=== PATIENT | male | born 1945 | race Caucasian/White ===

== ENCOUNTER 2020-12-22 13:45 | Outpatient (CLI) | payer MEDICARE, SELFPAY | END 2020-12-22 13:46 | disposition home or self-care (01) | LOC: ANHCOVIDVC 13:45 | PROVIDERS: PCP Internal Medicine | DX: Z23 Encounter for immunization (principal) | CPT/HCPCS: 0001A; 91300 ==

== ENCOUNTER 2021-01-12 13:37 | Outpatient (CLI) | payer MEDICARE, SELFPAY | END 2021-01-12 13:38 | disposition home or self-care (01) | LOC: ANHCOVIDVC 13:37 | PROVIDERS: PCP Internal Medicine | DX: Z23 Encounter for immunization (principal) | CPT/HCPCS: 0002A; 91300 ==

== ENCOUNTER 2021-02-26 14:30 | Outpatient (CLI) | payer MEDICARE, SELFPAY ==
--- NOTE | 2021-02-26 15:16 | ECHO_ITS ---
Patient Info Name: Mohinder Orellana Age: 75 years : 1945 Gender: Male Ht: 69 in Wt: 205 lbs BSA: 2.15 m2 HR: 72 bpm BP: 131 / 79 mmHg Heart Rhythm: Sinus Rhythm Technical Quality: Good Exam Date: 02/26/2021 3:29 PM Exam Location: [facility] Patient Status: Outpatient Admit Date: 02/26/2021 Staff Ordering Physician: Brian Baron MD Jig Builder: Sarita Alvarez RDCS Attending Provider: Brian Baron MD Referring Physician: Tod BENZ; Exam Type: CA echo doppler color flow Study Info Indications - BRADYCARDIA Complete two-dimensional, color flow and Doppler transthoracic echocardiogram is performed. Summary 1. Complete two-dimensional, color flow and Doppler transthoracic echocardiogram is performed. 2. Normal left ventricular size and thickness with left ventricular systolic function at the lower limit of normal. EF 50-55% visually, 44% measured. No focal wall motion abnormalities. Grade 2 diastolic dysfunction is present. 3. Left atrial chamber dimension is severely enlarged. 4. There is mild mitral valve regurgitation. 5. There is mild tricuspid valve regurgitation. 6. There is mild pulmonic regurgitation. 7. Moderate pulmonary hypertension, estimated pulmonary arterial systolic pressure is 47 mmHg. 8. Normal sinus rhythm with very frequent PVCs. Left Ventricle Left ventricular chamber dimension is normal. Left ventricular systolic function is normal, estimated at 50-55%. There is no increased left ventricular wall thickness. Left ventricular septal wall motion is normal. The left ventricular diastolic function is grade II diastolic dysfunction. Right Ventricle Right ventricular chamber dimension is normal. Right ventricular systolic function is normal. Left Atria Left atrial chamber dimension is severely enlarged. Right Atria Right atrial chamber dimension is normal. Aortic Valve The aortic valve is trileaflet. There is moderate aortic valve sclerosis. There is no aortic valve stenosis. There is no aortic valve regurgitation. Pulmonic Valve The pulmonic valve is normal. There is no pulmonic valve stenosis. There is mild pulmonic regurgitation. Mitral Valve The mitral valve has thickened leaflets. There is no mitral valve stenosis. There is mild mitral valve regurgitation. Tricuspid Valve The tricuspid valve leaflets are normal. There is no significant tricuspid valve stenosis. There is mild tricuspid valve regurgitation. Moderate pulmonary hypertension, estimated pulmonary arterial systolic pressure is 47 mmHg. Pericardium/Pleural The pericardium appears normal. There is no pericardial effusion. Inferior Vena Cava Normal inferior vena cava with >50% collapse upon inspiration consistent with Empty right atrial pressure, 10 mmHg. Aorta The aortic root size at the sinus of Valsalva is normal. The prox ascending aorta size is normal. There is mild aortic atherosclerosis. Left Ventricular Outflow Tract Name Value Normal LVOT 2D LVOT Diameter 2.1 cm LVOT Doppler LVOT Peak Gradient 4 mmHg LVOT
--- NOTE | 2021-03-05 16:27 | WPDHOLTEREM ---
Holter/Event Monitor Holter/Event Monitor Date of procedure: 02/26/21 Holter/Event Procedure: 48 Hr Holter Monitor Indications: Bradycardia, history of heart disease Conclusion: 1. 48 hour holter monitor on 02/26/21. 2. Predominant rhythm is sinus rhythm. HR range 50-107 bpm; average HR 70 bpm. 3. There ar 8,216 premature supraventricular complexes, 344 supraventricular couplet, 25 supraventricular bigeminy and 481 supraventricular trigeminy. There are 44 episodes of atrial tachycardia, fastest at 156 bpm and longest lasting 6 beats. 4. There are 14,277 premature ventricular complexes, 563 ventricular couplets, 100 ventricular triplets, 5,286 ventricular bigeminy and 10,382 ventricular trigeminy. There are 11 episodes of ventricular tachycardia, fastest at 141 bpm and longest lasting 5 beats. 5. Right bundle branch block. No sinoatrial or atrioventricular blocks. No significant pauses greater than 2 seconds. 6. Patient reports symptoms of shortness of breath which demonstrate sinus rhythm, HR range 71-87 bpm with PAC's and PVC's.
== END 2021-02-26 14:31 | disposition home or self-care (01) ==
PROVIDERS: PCP Internal Medicine; Visit Provider Internal Medicine
DX: I45.10 Unspecified right bundle-branch block (principal); Z86.79 Personal history of other diseases of the circulatory system; I10 Essential (primary) hypertension; I34.0 Nonrheumatic mitral (valve) insufficiency; I36.1 Nonrheumatic tricuspid (valve) insufficiency; I37.1 Nonrheumatic pulmonary valve insufficiency; I27.20 Pulmonary hypertension, unspecified
CPT/HCPCS: 93225; 93226; 93306

== ENCOUNTER 2021-04-03 13:44 | Outpatient (CLI) | payer MEDICARE, SELFPAY ==
--- NOTE | 2021-04-03 17:14 | WPDPFTINT ---
PFT Procedure Performed PFT Procedure Performed Spirometry with Pre/Post Bronchodilator Plethysmography (Lung Vol) Diffusing Cap (DLCO) Flow Vol Loop PFT Interpretation This is a pulmonary function test with pre and post-bronchodilator spirometry, plethysmography and diffusing capacity. The test was performed and results interpreted in accordance with the 2019 and 2005 ATS/ERS Task Force guidelines respectively using the Global Lung Function Initiative-2012 reference equations. Patient demonstrated good effort and cooperation. Reproducibility criteria were met. The quality of the pre bronchodilator spirometry maneuver was Grade A and post bronchodilator spirometry maneuver was Grade B. Findings: Spirometry: The contour the inspiratory and expiratory flow tracing are normal. The pre bronchodilator FVC is 3.71 L, 95% predicted. The pre bronchodilator FEV1 is 2.66 L, 91% predicted. The FEV1: FVC ratio 72%. The post bronchodilator FVC is 3.75 L, representing 1% increase. The post bronchodilator FEV1 is 2.82 L, representing a 6% increase. Plethysmography: The total lung capacity is 6.05 L, 89% predicted. Functional residual capacity is 3.46 L, 95% predicted. The residual volume is 1.92 L, 77% predicted. Diffusing capacity: The absolute diffusion capacity is 17.8, 72% predicted. The diffusing capacity corrected for alveolar volume is 3.37, 88% predicted. Impression: The spirometry is normal without evidence of an obstructive abnormality. There is no significant improvement after inhaling a single dose of albuterol. The lung volumes are normal. The diffusing capacity is normal. There are no prior studies for comparison
== END 2021-04-03 13:45 | disposition home or self-care (01) ==
PROVIDERS: PCP Internal Medicine; Visit Provider Internal Medicine
DX: R06.00 Dyspnea, unspecified (principal); R06.02 Shortness of breath; I27.20 Pulmonary hypertension, unspecified
CPT/HCPCS: 94060; 94726; 94729

== ENCOUNTER 2021-05-06 01:40 | Day surgery (SDC) | payer MEDICARE, SELFPAY ==
[2021-05-06] VITALS (9 sets, daily range): BP systolic 109–119; BP diastolic 67–75; PULSE 59–73; RESP 13–16; TEMP 36.1–36.2; O2SAT 92–95; BMI 30.2
[2021-05-06 07:49] LABS: Basophils Absolute Auto 0.1 K/mm3 (0.0-0.1); Basophils Percent Auto 1.1 % (0.2-1.2); Eosinophils Absolute Auto 0.3 K/mm3 (0-0.3); Eosinophils Percent Auto 6.5 % (0-4.4); Hematocrit 45.6 % (42.0-52.0); Hemoglobin 15.6 g/dL (14.0-18.0); Immature Granulocyte Absolute 0.02 K/mm3 (0.00-0.031); Immature Granulocyte Percent A 0.4 % (0-0.5); Immature Platelet Fraction Pct 5.4 % (0.9-11.2); Lymphocytes Absolute Auto 1.27 K/mm3 (0.9-3.2); Lymphocytes Percent Auto 27.5 % (18.3-44.2); Mean Corpuscular HGB Conc 34.2 g/dl (32-36); Mean Corpuscular Hemoglobin 31.9 pg (26-34); Mean Corpuscular Volume 93.3 fl (80-100); Mean Platelet Volume 10.9 fl (7.4-10.4); Monocytes Absolute Auto 0.6 K/mm3 (0.1-0.6); Monocytes Percent Auto 12.4 % (2.6-8.5); Neutrophils Absolute Auto 2.4 K/mm3 (1.3-6.7); Neutrophils Percent Auto 52.1 % (45.5-73.1); Platelet Count Result 150 k/mm3 (150-375); Red Blood Count 4.89 M/mm3 (4.6-6.20); Red Cell Distribution Width 13.2 % (11.5-14.5); White Blood Count 4.6 K/mm3 (4.5-10.0)
[2021-05-06 07:58] LABS: Anion Gap 7 mmol/L (8-16); Blood Urea Nitrogen 24 mg/dL (9-20); Calcium 9.3 mg/dL (8.4-10.2); Carbon Dioxide 26 mmol/L (22-30); Chloride 107 mmol/L (98-107); Estimated Glomerular Filt Rate > 60; Glucose 128 mg/dL (65-110); Potassium 3.9 mmol/L (3.4-5.0); Sodium 140 mmol/L (137-145)
[2021-05-06 08:00] LABS: INR 0.9; Prothrombin Time 12.1 Seconds (11.1-14.7)
--- NOTE | 2021-05-06 09:05 | WPDMODSED ---
Moderate Sedation Note-Pt Data Patient Data Diagnosis: Mild left ventricular systolic dysfunction and ventricular arrhythmias Present Complaint: no complaints Procedure to be performed/Plan: this is a 75-year-old man without prior history of coronary disease who was been found on noninvasive evaluation to have a decline in his LV systolic function and evidence of asymptomatic nonsustained ventricular tachycardia Allergies Allergy/AdvReac Type Severity Reaction Status Date / Time indomethacin Allergy Intermediate GASTRIC Verified 05/06/21 07:41 UPSET clarithromycin Allergy Mild Unknown Verified 05/06/21 07:41 Home Medications Medication Instructions Recorded Confirmed Type krill oil 500 mg capsule 500 mg PO DAILY 08/28/19 05/06/21 History enalapril maleate 20 mg tablet 20 mg PO BID #180 tablet 08/19/20 05/06/21 Rx celecoxib 200 mg capsule 200 mg PO DAILY #90 cap 10/28/20 05/06/21 Rx alprazolam 0.5 mg tablet 0.5 mg PO BID #180 tablet 04/14/21 05/06/21 Rx allopurinol 300 mg PO DAILY 05/06/21 05/06/21 History felodipine 10 mg PO BID 05/06/21 05/06/21 History lansoprazole 20 mg PO DAILY 05/06/21 05/06/21 History Current Medications: Active Medications Sodium Chloride (Normal Saline Iv) 500 mls @ 100 mls/hr IV CONT .Q5H BART Sedation/Anesthesia: No previous sedation/anesthesia problems (including family history). [facility] Past Medical History Medical History Abnormal finding of blood chemistry Benign essential hypertension BMI 29.0-29.9,adult BMI 30.0-30.9,adult BMI 31.0-31.9,adult Bradycardia Cataract, right eye Cyst ADAMS (dyspnea on exertion) Elevated glucose Encounter for Medicare annual wellness exam Encounter for routine adult health examination with abnormal findings Encounter for routine adult health examination without abnormal findings Encounter for special screening examination for neoplasm of prostate GERD (gastroesophageal reflux disease) Gout Grade II diastolic dysfunction Hearing loss Hx of valvular heart disease Hyperlipidemia Hypersomnolence On halfway drug therapy Pulmonary hypertension RBBB (right bundle branch block) SOB (shortness of breath) Tick bite Vitamin D deficiency Surgical History Surgical History S/P cataract surgery Family History Family History Father Family history of heart disease in male family member before age 55 Other Malignant neoplasm of prostate Social History Social History Smoking status: Former smoker Second hand tobacco smoke exposure: Yes Smoking end date: 12/12/83 Additional smoking assessment comments: Discussed pack years. Alcohol intake: current Substance use: never Substance use type: does not use Gender identity (if verbalized by the patient): Male Mod Sed Physical Exam Physical Exam Pre Procedural Exam: Normal: Appearance, Neck, Throat, Airway, Lungs, Heart Size, Heart Rate, Heart Rhythm, Neuro Exam and Extremities Hours since solid foods: 12 Hours since liquid intake: 12 Mallampati Classification: class II Internal Medicine - PN: Obj Da Vital Signs Vital Signs: Vital Signs - 24 hr 05/06/21 07:45 Temperature 36.1 C L Pulse Rate 73 Respiratory Rate 13 Blood Pressure 114/72 Pulse Oximetry 95 Meds/Results Medications: Active Medications Generic Name Dose Route Start Last Admin Trade Name Freq PRN Reason Stop Dose Admin Sodium Chloride 500 mls @ 100 mls/hr 05/06/21 07:30 Normal Saline Iv IV CONT .Q5H BART Labs CBC & Chem 7: 05/06/21 07:31 05/06/21 07:31 Labs: Laboratory Results - last 24 hr 05/06/21 05/06/21 05/06/21 07:31 07:31 07:31 WBC 4.6 RBC 4.89 Hgb 15.6 Hct 45.6 MCV 93.3 MCH 31.9 MCHC 34.2 RDW 13.2 Plt Count 150
--- NOTE | 2021-05-06 09:42 | WPDCARDPROC ---
Cardiac Cath Procedure Note Date of procedure:: 05/06/21 Performing physician:: Channing Tobar MD Indication:: left ventricular systolic dysfunction and asymptomatic ventricular arrhythmias Brief clinical history:: this is a 75-year-old man with no prior history of significant coronary disease. As an outpatient he was found on evaluation to have a decline in his LV systolic function by echo and asymptomatic nonsustained ventricular arrhythmias noted on Holter monitoring. Procedure Procedure performed:: Coronary angiography left ventriculography Angio-Seal to right femoral artery Sedation/Medication given:: fentanyl 50 mg Versed 2 mg case start time 9:15 a.m. case end time 9:37 a.m. sedation provided by Shea Rose RN, trained observer Access site:: right femoral artery Estimated blood loss:: minimal Procedure note:: patient was brought to the cardiac catheterization lab in the postabsorptive state the right femoral triangle was prepared and draped in the usual fashion. Anesthesia was provided with 1% lidocaine infiltrated locally. Using the modified Seldinger technique a 5 American sheath was placed into the femoral artery and left heart catheterization was carried out. I used a 5 American angled pigtail catheter to inject the left ventriculogram in the STARK projection and to document left-sided central hemodynamics. After this I used a 5 American FL4 catheter to engage and inject the left coronary artery and then a 5 American JR4 catheter to engage and inject the right coronary artery. 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 Findings:: Hemodynamics: Central aortic pressure is 104/70 left ventricle 104/0 end-diastolic pressure there is no systolic gradient on pullback across the aortic valve. Left ventricle: The LV is mildly enlarged there is moderate global systolic hypocontractility the ejection fraction is visually estimated at 35%. The left main coronary artery is large in caliber and widely patent the LAD is a moderate caliber artery that extends down to the apex the LAD has minimal luminal irregularities but no flow-limiting or significant disease is identified. The circumflex is a moderate to large caliber vessel giving rise to marginal branches the trunk of the circumflex has mild luminal irregularities in the midportion but again no significant disease is seen. The right coronary artery is large in caliber and dominant to the posterior circulation. Majority of the RCA is angiographically normal. There is calcification at the ostium of the right coronary artery of the wall of the aorta. There is no dampening of pressure on engaging the vessel. Angiographically there is in the range of 50-60% ostial stenosis. Again this does not appear to be limiting flow and this patient is not describing ischemic symptomatology. Conclusion:: 1. Angiographically modest coronary artery disease with minimal plaquing in the left coronary artery and some ostial calcific disease in the RCA as detailed above. None of this appears to be flow limiting. 2. Moderate left ventricular systolic dysfunction. Channing Tobar MD FACC
--- NOTE | 2021-05-06 13:50 | SUR.PHASEII ---
REVIEWED DISCHARGE INSTRUCTIONS W/ PT AND . QUESTIONS ANSWERED. VOICED UNDERSTANDING OF ALL INSTRUCTIONS. DISCHARGED HOME, OUT VIA WC TO 'S WAITING CAR, WITH ALL PERSONAL BELONGINGS AND DISCHARGE PACKET. VOICES NO C/O. NO DISTRESS NOTED. R. GROIN SITE WITHOUT CHANGE. R. PEDAL PULSE PALP STRONG.
== END 2021-05-06 13:50 | disposition home or self-care (01) ==
PROVIDERS: PCP Internal Medicine; Visit Provider Specialist
PROC: 4A023N7 Measurement of Cardiac Sampling and Pressure, Left Heart, Percutaneous Approach (ICD-10-PCS; CPT 93452; principal; 2021-05-06 08:30)
DX: I51.89 Other ill-defined heart diseases (principal); I49.8 Other specified cardiac arrhythmias; I25.10 Atherosclerotic heart disease of native coronary artery without angina pectoris; I48.0 Paroxysmal atrial fibrillation; I34.0 Nonrheumatic mitral (valve) insufficiency; I42.9 Cardiomyopathy, unspecified; I27.20 Pulmonary hypertension, unspecified; I45.10 Unspecified right bundle-branch block; I10 Essential (primary) hypertension; M10.9 Gout, unspecified; Z87.891 Personal history of nicotine dependence
CPT/HCPCS: 36415; 80048; 85025; 85055; 85610; 93458; C1760; C1887; C1894; G0269; J1644; J2250; J3010; J7040

== ENCOUNTER → 2021-07-17 08:03 | Outpatient (CLI) | payer MEDICARE, SELFPAY ==
[2021-07-17 17:24] LABS: SARS-CoV-2 RNA PCR Positive
== END ==
PROVIDERS: PCP Internal Medicine; Visit Provider Internal Medicine
DX: U07.1 COVID-19 (principal); R05.8 Other specified cough
CPT/HCPCS: C9803; U0003; U0005

== ENCOUNTER 2022-07-19 16:07 | Outpatient (CLI) | payer MEDICARE, SELFPAY ==
[2022-07-19 17:09] LABS: Appearance Urine Clear (Clear); Bilirubin Urine Negative (Negative); Blood Urine Negative (Negative); Color Urine Yellow (Yellow); Glucose Urine UA Negative (Negative); Ketones Urine Negative (Negative); Leukocyte Esterase Ur Negative LEU/UL (Negative); Nitrate Urine Negative (Negative); Protein Urine 1+ mg/dL (Negative); Specific Grav Ur 1.025 (1.001-1.035)
[2022-07-19 17:13] LABS: Mucus Urine Rare /lpf; RBC Urine 0-2 /hpf (0-2); Squamous Epithelial Cell Urine Rare /hpf (Few); WBC Urine 0-3 /hpf
[2022-07-19 17:14] LABS: Add Urine Microscopic? YES
[2022-07-19 17:16] LABS: Anion Gap 13 mmol/L (8-16); Blood Urea Nitrogen 24 mg/dL (9-20); Calcium 8.9 mg/dL (8.4-10.2); Carbon Dioxide 28 mmol/L (22-30); Chloride 103 mmol/L (98-107); Estimated Glomerular Filt Rate > 60; Glucose 107 mg/dL (65-110); Potassium 3.9 mmol/L (3.4-5.0); Sodium 144 mmol/L (137-145)
== END 2022-07-19 16:08 | disposition home or self-care (01) ==
LOC: ANHLAB 16:10
PROVIDERS: PCP Internal Medicine; Visit Provider Internal Medicine
DX: I10 Essential (primary) hypertension (principal); R00.2 Palpitations; Z79.899 Other long term (current) drug therapy
CPT/HCPCS: 36415; 80048; 81001; 83735

== ENCOUNTER 2022-09-02 10:54 | Outpatient (CLI) | payer MEDICARE, SELFPAY ==
--- NOTE | 2022-09-08 13:38 | WPDHOLTEREM ---
Holter/Event Monitor Holter/Event Monitor Date of procedure: 09/02/22 Holter/Event Procedure: 48 Hr Holter Monitor Diagnosis: Bradycardia Indications: Bradycardia Image/Tracing Quality: Adequate. Analysis time is 47 hours and 59 minutes. Findin. Predominantly sinus rhythm. Average heart rate is 68BPM. The minimum heart rate was sinus bradycardia at 44BPM, occurring at 16:47 on day 1. The maximum heart rate was 90BPM. 2. Supraventricular ectopy burden is 1.2%. Supraventricular ectopy consisted of runs, atrial couplets, single PACs. The longest supraventricular run consisted of 5 beats with a maximum heart rate of 114BPM, which was also the fastest run. 3. Ventricular ectopy burden is 18%. Ventricular ectopy consisted of runs, triplets, couplets, single PVCs, interpolated PVCs, R on T, bigeminy, trigeminy. The longest ventricular run consisted of 10 beats, with a maximum heart rate of 73BPM. The fastest ventricular run consisted of 4 beats, with a maximum heart rate of 130BPM. 4. There is no evidence of atrial fibrillation. 5. There was 1 patient reported event of burning sensation in toes and fingers when sleeping. This correlated to sinus rhythm with PVCs. Conclusion: 1. Predominantly sinus rhythm. Average heart rate is 68BPM. The minimum heart rate was sinus bradycardia at 44BPM, occurring at 16:47 on day 1. The maximum heart rate was 90BPM. 2. Supraventricular ectopy burden is 1.2%. Supraventricular ectopy consisted of runs, atrial couplets, single PACs. The longest supraventricular run consisted of 5 beats with a maximum heart rate of 114BPM, which was also the fastest run. 3. Ventricular ectopy burden is 18%. Ventricular ectopy consisted of runs, triplets, couplets, single PVCs, interpolated PVCs, R on T, bigeminy, trigeminy. The longest ventricular run consisted of 10 beats, with a maximum heart rate of 73BPM. The fastest ventricular run consisted of 4 beats, with a maximum heart rate of 130BPM. 4. There is no evidence of atrial fibrillation. 5. There was 1 patient reported event of burning sensation in toes and fingers when sleeping. This correlated to sinus rhythm with PVCs.
== END 2022-09-02 10:55 | disposition home or self-care (01) ==
LOC: ANHCARD 10:55
PROVIDERS: PCP Internal Medicine; Visit Provider Internal Medicine
DX: I49.3 Ventricular premature depolarization (principal); R20.8 Other disturbances of skin sensation
CPT/HCPCS: 93225; 93226

== ENCOUNTER 2022-12-23 12:02 | Outpatient (CLI) | payer MEDICARE, SELFPAY ==
--- NOTE | ~2022-12-23 | US_ITS ---
EXAMINATION: US soft tissue head and neck DATE: 12/23/2022 12:42 INDICATION: Right neck mass. TECHNIQUE: Multiple grayscale and Doppler ultrasound images of the neck were obtained. COMPARISON: None FINDINGS: There is no abnormal mass or lymphadenopathy in the right supraclavicular region in the pat ient's area of concern. IMPRESSION: 1. No abnormal mass or lymphadenopathy in the right supraclavicular region in the patient's area of c oncern. Reviewed, dictated and finalized at location A. IMPRESSION: 1. No abnormal mass or lymphadenopathy in the right supraclavicular region in t he patient's area of concern.
== END 2022-12-23 12:03 | disposition home or self-care (01) ==
PROVIDERS: PCP Internal Medicine; Visit Provider Internal Medicine
DX: R22.1 Localized swelling, mass and lump, neck (principal); W57.XXXA Bitten or stung by nonvenomous insect and other nonvenomous arthropods, initial encounter
CPT/HCPCS: 76536

== ENCOUNTER 2023-05-02 10:36 | Outpatient (CLI) | payer MEDICARE, SELFPAY ==
--- NOTE | ~2023-05-02 | CT_ITS ---
EXAMINATION: CT brain wo/w con DATE: 05/02/2023 11:23 INDICATION: Amaurosis fugax TECHNIQUE: Computed tomography (CT) of the head was performed without and with 100 cc Omnipaque 350 i ntravenous contrast. The dose-length product was 1210.67 mGy-cm. Automated exposure control and itera tive reconstruction technique were employed. COMPARISON: None FINDINGS: Mild generalized atrophy, within normal limits for age. There are scattered mild periventri cular and subcortical white matter changes, most likely related to small vessel ischemic disease (luz maria roangiopathy). There are right parietal cortical calcification, likely related to previous infection or trauma. There is intracranial atherosclerosis. No abnormal masses or enhancement. Paranasal sinuse s and mastoids are pneumatized. No depressed skull fractures. IMPRESSION: 1. No acute intracranial abnormality. Reviewed, dictated and finalized at location B.
--- NOTE | ~2023-05-02 | US_ITS ---
EXAMINATION: US carotid duplex BI DATE: 05/02/2023 11:37 INDICATION: Amaurosis fugax TECHNIQUE: Grayscale, color Doppler, and pulsed Doppler images of the cervical carotid arteries were obtained. The degree of vessel stenosis is placed in one of the following categories: normal, <50%, 5 0-69%, >=70% but less than near-occlusion, near-occlusion, or total occlusion. Note that percent sten osis relative to normal distal artery lumen diameter is indirectly measured from velocity measurement s as described by Jackson, et al. Radiology 2003; 229:340-346. Notes: Normal: Peak systolic velocity <125 centimeters/sec and no plaque <50%. Peak systolic velocity <125 ( EDV <40; ICA/CCA PSV ratio <2.0; used these factors only a tandem lesions or low cardiac output or co ntralateral disease) 50-69 %: PSV 125-230 (EDV 40-100; ratio 2-4) >= 70% but less than near occlusion: PSV greater than 230 (EDV > 100; ratio> 4.0) Near Occlusion: PSV that is variable; markedly narrowed lumen Occlusion: Absent flow on color/spectral Doppler and no lumen on shin scale. COMPARISON: None. FINDINGS: RIGHT: The right common carotid artery (CCA) peak systolic velocity (PSV) is 95 cm/s. The right internal car otid artery (ICA) PSV is 53 cm/s. The right ICA end-diastolic velocity (EDV) is 24 cm/s. The right IC A/CCA PSV ratio is 0.6. The external carotid artery (ECA) PSV is 69 cm/s. There is antegrade flow in the right vertebral artery. LEFT: The left CCA PSV is 56 cm/s. The left ICA PSV is 96 cm/s. The left ICA EDV is 41 cm/s. The left ICA/C CA PSV ratio is 1.7 cm/s. The external carotid artery peak systolic velocity is 73 cm/s. There is ant egrade flow in the left vertebral artery. IMPRESSION: 1. Less than 50% stenosis in the right internal carotid artery by sonographic criteria. 2. Less than 50% stenosis in the left internal carotid artery by sonographic criteria. Reviewed, dictated and finalized at location B. IMPRESSION: 1. Less than 50% stenosis in the right internal carotid artery by sonographic c mathew. 2. Less than 50% stenosis in the left internal carotid artery by sonographic kayleigh mcintosh.
[2023-05-02 10:50] LABS: Basophils Absolute Auto 0.1 K/mm3 (0.0-0.1); Basophils Percent Auto 1.1 % (0.2-1.2); Eosinophils Absolute Auto 0.3 K/mm3 (0-0.3); Eosinophils Percent Auto 5.5 % (0-4.4); Hematocrit 48.4 % (42.0-52.0); Hemoglobin 16.5 g/dL (14.0-18.0); Immature Granulocyte Absolute 0.02 K/mm3 (0.00-0.031); Immature Granulocyte Percent A 0.4 % (0-0.5); Lymphocytes Absolute Auto 1.35 K/mm3 (0.9-3.2); Lymphocytes Percent Auto 29.8 % (18.3-44.2); Mean Corpuscular HGB Conc 34.1 g/dl (32-36); Mean Corpuscular Hemoglobin 33.7 pg (26-34); Mean Corpuscular Volume 98.8 fl (80-100); Mean Platelet Volume 10.6 fl (7.4-10.4); Monocytes Absolute Auto 0.4 K/mm3 (0.1-0.6); Monocytes Percent Auto 9.7 % (2.6-8.5); Neutrophils Absolute Auto 2.4 K/mm3 (1.3-6.7); Neutrophils Percent Auto 53.5 % (45.5-73.1); Platelet Count Result 115 k/mm3 (150-375); Red Cell Distribution Width 13.3 % (11.5-14.5); White Blood Count 4.5 K/mm3 (4.5-10.0)
[2023-05-02 11:02] LABS: Alanine Aminotransferase 21 U/L (6-50); Albumin Level 4.4 g/dL (3.5-5.1); Alkaline Phosphatase 100 U/L (38-126); Anion Gap 7 mmol/L (8-16); Aspartate Amino Transferase 21 U/L (17-59); Bilirubin,Total 0.7 mg/dL (0.2-1.3); Blood Urea Nitrogen 25 mg/dL (9-20); CRP < 0.5 mg/dL (<1.0); Calcium 9.2 mg/dL (8.4-10.2); Carbon Dioxide 26 mmol/L (22-30); Chloride 105 mmol/L (98-107); Estimated Glomerular Filt Rate 59; Glucose 134 mg/dL (65-110); Potassium 4.4 mmol/L (3.4-5.0); Sodium 138 mmol/L (137-145)
[2023-05-02 11:43] LABS: Erythrocyte Sedimentation Rate 1 mm/hr (0-20)
== END 2023-05-02 10:37 | disposition home or self-care (01) ==
PROVIDERS: PCP Internal Medicine; Visit Provider Internal Medicine
DX: G45.3 Amaurosis fugax (principal); H53.9 Unspecified visual disturbance; Z79.899 Other long term (current) drug therapy; I10 Essential (primary) hypertension; G45.9 Transient cerebral ischemic attack, unspecified
CPT/HCPCS: 36415; 70470; 80053; 85025; 85652; 86140; 93880; Q9967

== ENCOUNTER 2023-07-13 02:11 | Observation (INO) | payer MEDICARE, SELFPAY ==
[2023-07-13] VITALS (9 sets, daily range): BP systolic 114–169; BP diastolic 72–90; PULSE 64–92; RESP 14–16; TEMP 36.5–36.7; O2SAT 94–100; BMI 32.1
--- NOTE | ~2023-07-13 | MR_ITS ---
EXAMINATION: MR brain/brain stem wo/w con DATE: 07/13/2023 10:31 INDICATION: Right arm and face numbness. TECHNIQUE: Magnetic resonance imaging (MRI) of the brain and brainstem was performed without and with 19 mL MultiHance intravenous contrast. 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 There are scattered areas of nonspecific increased T2-weighted signal intensity in the cerebral white matter. There is no intracranial hemorrhage, acute infarction, or abnormal intracranial mass lesion. The ventricles are normal in size. There are likely changes of ocular lens replacement surgeries. Th e paranasal sinuses are clear. The mastoid air cells are normal. IMPRESSION: 1. 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 2. Mild nonspecific cerebral white matter disease, which likely represents chronic small vessel ische luz maria disease. Reviewed, dictated and finalized at location E. IMPRESSION: 1. 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 2. Mild nonspecific cerebral white matter disease, which likely represents chrome tanner galileo small vessel ischemic disease.
--- NOTE | ~2023-07-13 | XR_ITS ---
EXAMINATION: XR chest 1V portable DATE: 07/13/2023 02:53 INDICATION: Cerebral vascular accident. TECHNIQUE: A single frontal view of the chest was obtained. COMPARISON: Chest 2 views 05/26/2018 FINDINGS: There are mild airspace opacities in the lower lung zones. No pleural effusion or pneumotho rax. The heart size is normal. IMPRESSION: 1. Mild airspace opacities in the lower lung zones, consistent with atelectasis versus pneumonia. Reviewed, dictated and finalized at location E.
--- NOTE | ~2023-07-13 | CT_ITS ---
EXAMINATION: CTA brain carotid DATE: 07/13/2023 02:55 INDICATION: Stroke. TECHNIQUE: Computed tomographic angiography (CTA) of the head was performed with 100 mL Omnipaque-350 intravenous contrast. CTA of the neck was performed with intravenous contrast. Automated exposure co ntrol and iterative reconstruction technique were employed. The dose-length product was 1243.69 mGy-c m. Maximum intensity projection and volume rendered 3D-reconstructions were created by the technCagenixi st on a separate workstation. COMPARISON: Head CT 07/13/2023 FINDINGS: HEAD CTA: There is an old infarct with dystrophic calcifications in right frontoparietal region. Ther e are scattered areas of low attenuation in the cerebral white matter. There is no intracranial hemor rhage, acute infarction, or abnormal intracranial mass lesion. The ventricles are normal in size. The re are likely changes of ocular lens replacement surgeries. The mastoid air cells are normal. There i s mild mucosal thickening in the paranasal sinuses. Left vertebral artery is dominant. There is no si gnificant stenosis of basilar artery or the posterior cerebral arteries. There is no significant sten osis of the intracranial internal carotid arteries or anterior or middle cerebral arteries. Anterior communicating artery is normal. The posterior communicating arteries are normal. There is no aneurysm . NECK CTA: There is mild emphysema. There are no pathologically enlarged lymph nodes. There is no sign ificant stenosis of the vertebral arteries. There is plaque in the proximal internal carotid arteries . There is 0% stenosis of the proximal right internal carotid artery relative to normal distal artery lumen diameter (NASCET criteria). There is 0% stenosis of the proximal left internal carotid artery relative to normal distal artery lumen diameter. There is severe cervical spondylosis. IMPRESSION: 1. 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 2. Mild nonspecific cerebral white matter disease, which likely represents chronic small vessel ische luz maria disease. 3. No aneurysm or significant intracranial arterial stenosis. 4. 0% stenosis of the proximal internal carotid arteries relative to normal distal artery lumen diame ters (NASCET criteria). Reviewed, dictated and finalized at location E. IMPRESSION: 1. 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 2. Mild nonspecific cerebral white matter disease, which likely represents ward helper galileo small vessel ischemic disease. 3. No aneurysm or significant intracranial arterial stenosis. 4. 0% stenosis of the proximal internal carotid arteries relative to normal dis galileo artery lumen diameters (NASCET criteria).
--- NOTE | ~2023-07-13 | CT_ITS ---
EXAMINATION: CT brain wo con DATE: 07/13/2023 02:38 INDICATION: Stroke. Numbness. TECHNIQUE: Computed tomography (CT) of the head was performed without intravenous contrast. The mA wa s adjusted according to patient size. Iterative reconstruction technique was employed. The dose-lengt h product was 681.00 mGy-cm. COMPARISON: Head CT 05/02/2023 FINDINGS: There are scattered areas of low attenuation in the cerebral white matter. There is an old infarct in right frontoparietal region with dystrophic calcifications. There is no intracranial hemor rhage, acute infarction, or abnormal intracranial mass lesion. The ventricles are normal in size. The re is mild mucosal thickening in the paranasal sinuses. There are likely changes of ocular lens repla cement surgeries. The mastoid air cells are normal. IMPRESSION: 1. Old infarct in right frontoparietal region. 2. Stable mild nonspecific cerebral white matter disease, which likely represents chronic small vesse l ischemic disease. Reviewed, dictated and finalized at location E. IMPRESSION: 1. Old infarct in right frontoparietal region. 2. Stable mild nonspecific cerebral white matter disease, which likely represen ts chronic small vessel ischemic disease.
[2023-07-13 02:22] LABS: Glucose Point of Care 83 mg/dl (65-105)
[2023-07-13 03:06] LABS: Basophils Absolute Auto 0.1 K/mm3 (0.0-0.1); Eosinophils Absolute Auto 0.3 K/mm3 (0-0.3); Eosinophils Percent Auto 5.8 % (0-4.4); Hematocrit 46.5 % (42.0-52.0); Hemoglobin 15.8 g/dL (14.0-18.0); Immature Platelet Fraction Pct 5.2 % (0.9-11.2); Lymphocytes Absolute Auto 1.81 K/mm3 (0.9-3.2); Lymphocytes Percent Auto 34.7 % (18.3-44.2); Mean Corpuscular Hemoglobin 33.3 pg (26-34); Mean Corpuscular Volume 98.1 fl (80-100); Mean Platelet Volume 10.9 fl (7.4-10.4); Monocytes Absolute Auto 0.5 K/mm3 (0.1-0.6); Monocytes Percent Auto 9.4 % (2.6-8.5); Neutrophils Absolute Auto 2.6 K/mm3 (1.3-6.7); Neutrophils Percent Auto 49.1 % (45.5-73.1); Platelet Count Result 134 k/mm3 (150-375); Red Blood Count 4.74 M/mm3 (4.6-6.20); Red Cell Distribution Width 13.4 % (11.5-14.5); White Blood Count 5.2 K/mm3 (4.5-10.0)
[2023-07-13 03:12] LABS: Prothrombin Time 13.7 Seconds (11.1-14.7)
[2023-07-13 03:13] LABS: Partial Thromboplastin Time 30.1 SECONDS (22.3-36.8)
[2023-07-13 03:16] LABS: Alanine Aminotransferase 20 U/L (6-50); Albumin Level 4.4 g/dL (3.5-5.1); Alkaline Phosphatase 114 U/L (38-126); Anion Gap 7 mmol/L (8-16); Aspartate Amino Transferase 26 U/L (17-59); Bilirubin,Total 0.7 mg/dL (0.2-1.3); Blood Urea Nitrogen 19 mg/dL (9-20); Calcium 9.4 mg/dL (8.4-10.2); Carbon Dioxide 25 mmol/L (22-30); Chloride 105 mmol/L (98-107); Estimated CRCL calculation 63 ml/min; Estimated Glomerular Filt Rate > 60; Glucose 90 mg/dL (65-110); Magnesium 2.1 mg/dL (1.6-2.3); Potassium 3.9 mmol/L (3.4-5.0); Sodium 137 mmol/L (137-145)
[2023-07-13 03:27] LABS: Troponin I < 0.012 ng/mL (0.000-0.034)
--- NOTE | 2023-07-13 03:38 | ECG_ITS ---
Measurements Intervals [place] Rate: 67 P: 37 MA: 197 QRS: 251 QRSD: 193 T: 33 QT: 485 QTc: 512 Interpretive Statements SINUS RHYTHM RIGHT AXIS DEVIATION RIGHT BUNDLE BRANCH BLOCK ABNORMAL ECG NO PREVIOUS ECG AVAILABLE FOR COMPARISON Electronically Signed On 07-13-2023 8:06:56 CDT by Quinn De La Torre D.O.
--- NOTE | 2023-07-13 04:44 | ED.NEUROSD ---
HPI - Neuro Symptoms/Deficit General Chief Complaint: Suspected CVA Stated Complaint: R sided numbness Time Seen by Provider: 07/13/23 02:29 History of Present Illness HPI Narrative: This is a 77-year-old male presenting to ED for possible CVA. The patient was reading a book at 1:30 a.m. when he developed numbness to his right arm and right lower face. No other neurologic deficits. The patient then came to the hospital for evaluation. By time he arrived in the emergency department his symptoms had started to improve. At this time he is only complaining of some numbness to his right lower face. Patient notes that 3 days ago he started to develop loss of lower nasal visual sexton in his right eye. He believes this is a retinal detachment because he had a retinal detachment in the other eye with the same presentation. 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 Related Data Home Medications Medication Instructions Recorded Confirmed krill oil 500 mg capsule 500 mg PO DAILY 08/28/19 06/24/23 cholecalciferol (vitamin D3) 25 25 mcg PO DAILY 04/23/22 06/24/23 mcg (1,000 unit) capsule empagliflozin 10 mg tablet 10 mg PO DAILY 09/16/22 06/24/23 spironolactone 25 mg tablet 25 mg PO DAILY 09/16/22 06/24/23 chlorpheniramine 4 1 tablet PO .at hs 10/21/22 06/24/23 mg-phenylephrine 10 mg-DM 10 mg tablet flecainide 100 mg tablet 100 mg PO Q12H 10/21/22 06/24/23 triamcinolone acetonide 55 mcg 2 spray intranasal DAILY 10/21/22 06/24/23 nasal spray aerosol (Nasacort) carvedilol 6.25 mg tablet 6.25 mg PO Q12H 06/30/23 sacubitril 49 mg-valsartan 51 mg 1 tablet PO BID 06/30/23 tablet (Entresto) Allergies Allergy/AdvReac Type Severity Reaction Status Date / Time indomethacin Allergy Intermediate GASTRIC Verified 07/13/23 03:04 UPSET clarithromycin Allergy Mild Unknown Verified 07/13/23 03:04 [facility] Past Medical History Medical History Abnormal finding of blood chemistry Benign essential hypertension BMI 30.0-30.9,adult BMI 31.0-31.9,adult Borderline abnormal TFTs Bradycardia Cardiomyopathy Cataract, right eye Changing skin lesion Colon cancer screening Cyst ADAMS (dyspnea on exertion) Dry cough Elevated glucose Encounter for Medicare annual wellness exam Encounter for routine adult health examination with abnormal findings Encounter for routine adult health examination without abnormal findings Follow up GERD (gastroesophageal reflux disease) Gout Grade II diastolic dysfunction Hearing loss Hx of valvular heart disease Hyperlipidemia Hypersomnolence On manager long term care drug therapy Prostate cancer screening Pulmonary hypertension PVCs (premature ventricular contractions) RBBB (right bundle branch block) SOB (shortness of breath) Thrombocytopenia Tick bite Vision changes Vitamin D deficiency Surgical History Surgical History S/P cataract surgery Family History Family History Father Family history of heart disease in male family member before age 55 Other Malignant neoplasm of prostate Social History Social History Smoking status: Former smoker Second hand tobacco smoke exposure: Yes Smoking end date: 12/12/83 Additional smoking assessment comments: Discussed pack years. Alcohol intake: current Substance use: never Substance use type: does not use Lack of Transportation: No Lack of Food: Never True Current Housing: I Have Housing Concerned About Future Housing: No Difficulty Paying Gas/Electric Bills: No Difficulty Paying for Meds: No Currently Unemployed: No Education: Master's Degree or Higher Difficulty w/ Childcare or Family Care: No Living arrangements: with family Occupation/Education: retired Gender identity (if verbalized b
[2023-07-13 05:07] LABS: Appearance Urine Clear (Clear); Bilirubin Urine Negative (Negative); Blood Urine Negative (Negative); Color Urine Yellow (Yellow); Glucose Urine UA 2+ mg/dL (Negative); Ketones Urine Negative (Negative); Leukocyte Esterase Ur Negative LEU/UL (Negative); Nitrate Urine Negative (Negative); Protein Urine Negative (Negative); pH Urine 5.5 (5.0-9.0)
[2023-07-13 05:15] LABS: Specific Grav Ur 1.071 (1.001-1.035)
[2023-07-13 05:16] LABS: Add Urine Microscopic? NO
[2023-07-13] MEDS: ASPIRIN 81 MG CHEWABLE TABLET 324 MG PO (05:31)
[2023-07-13 06:08] LABS: Troponin I < 0.012 ng/mL (0.000-0.034)
[2023-07-13 08:55] LABS: Estimated CRCL calculation 63 ml/min; Estimated Glomerular Filt Rate > 60
--- NOTE | 2023-07-13 11:35 | PC.NURSE ---
This patient, Mohinder Orellana Jr., was admitted to 3 [facility] Surg Room 321-02 @ 0658. Patient/family oriented to hospital policies and general routines including ID bracelet, bed and alarms, visiting hours, pain management, procedures, bathroom and other care routines, personal items, smoking policy, room service/diet, and visiting hours. Information on how to activate the Rapid Response Team has been discussed. Patient/Family are encouraged to report perceived risks to care and to ask questions if they do not understand what they are told or what they should do.
--- NOTE | 2023-07-13 11:57 | WPDNEURCNPN ---
Consult date: 07/13/23 HPI: Mohinder Orellana Jr. is a 77 year old male Has been admitted to the hospital through the emergency room for the possibility of cerebrovascular accident, reportedly he was reading a book around 1:30 a.m. when he suddenly developed numbness to his right upper extremity and right side of the face in the lower location, he came to the ER for further evaluation but by the time he came to the ER his symptomatology had resolved and he was only complaining of numbness to right lower face, patient also gave a history that about 3 days ago he developed loss of lower nasal visual field in the right eye, he carries the diagnosis of retinal detachment in other eye for he made the appointment with his it architecture analyst coming week. His medications included cholecalciferol 25 mg daily his spironolactone 25 mg daily, flcainide 100 mg Q 12 ,carvedilol 6.25 mg q.12 and,sacabitril and valsartan one tab bid. he is allergic to indomethacin , he has ongoing history of multiple medical problems, including hypertension, gout, PVCs with right bundle branch block, thrombocytopenia, has undergone cataract extraction and treatment for malignant neoplasm of the prostate, is currently alcohol intake and has not been smoking since December of 1983 initial exam in the emergency room was without any significant abnormalities, his initial vital signs were normal except blood pressure 169/90 routine labs were normal except platelet count 134 UA negative, initial CT scan of the head documented old infarct in the right fronto parietal region, and CTA documented old infarct in the right frontoparietal region as well but no aneurysm or significant intracranial arterial disease. 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 Review of Systems Review of Systems: All systems reviewed & are unremarkable except as noted in HPI and below [facility] Past Medical History Medical History Abnormal finding of blood chemistry Benign essential hypertension BMI 30.0-30.9,adult BMI 31.0-31.9,adult Borderline abnormal TFTs Bradycardia Cardiomyopathy Cataract, right eye Changing skin lesion Colon cancer screening Cyst ADAMS (dyspnea on exertion) Dry cough Elevated glucose Encounter for Medicare annual wellness exam Encounter for routine adult health examination with abnormal findings Encounter for routine adult health examination without abnormal findings Follow up GERD (gastroesophageal reflux disease) Gout Grade II diastolic dysfunction Hearing loss Hx of valvular heart disease Hyperlipidemia Hypersomnolence On prison drug therapy Prostate cancer screening Pulmonary hypertension PVCs (premature ventricular contractions) RBBB (right bundle branch block) SOB (shortness of breath) Thrombocytopenia Tick bite Vision changes Vitamin D deficiency Surgical History Surgical History S/P cataract surgery Family History Family History Father Family history of heart disease in male family member before age 55 Other Malignant neoplasm of prostate Social History Social History Smoking status: Former smoker Second hand tobacco smoke exposure: Yes Smoking end date: 12/12/83 Additional smoking assessment comments: Discussed pack years. Alcohol intake: current Substance use: never Substance use type: does not use Lack of Transportation: No Lack of Food: Never True Current Housing: I Have Housing Concerned About Future Housing: No Difficulty Paying Gas/Electric Bills: No Difficulty Paying for Meds: No Currently Unemployed: No Education: Master's Degree or Higher Difficulty w/ Childcare or Family Care: No Living arrangements: with family Occupation/Education: retired Gender identity (if verbalized by t
--- NOTE | 2023-07-13 16:53 | PM.SD2 ---
Same Day Admit/Disch: HPI History of Present Illness Chief complaint: CVA/TIA Narrative: Mohinder Orellana Jr. is a 77 year old male admitted with suspected cva pt was reading book at 130 am noticed numbness in his R arm and R face lasting one hour, pt has history of cHF and has been running low blood pressures his medications have been changed recently. Pt has history of retinal detachment, 3 days ago he started to develop loss of? 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 2. Mild nonspecific cerebral white matter disease, which likely represents chronic small vessel ischemic disease. No new infarcts [facility] Past Medical History Medical History Abnormal finding of blood chemistry Benign essential hypertension BMI 30.0-30.9,adult BMI 31.0-31.9,adult Borderline abnormal TFTs Bradycardia Cardiomyopathy Cataract, right eye Changing skin lesion Colon cancer screening Cyst ADAMS (dyspnea on exertion) Dry cough Elevated glucose Encounter for Medicare annual wellness exam Encounter for routine adult health examination with abnormal findings Encounter for routine adult health examination without abnormal findings Follow up GERD (gastroesophageal reflux disease) Gout Grade II diastolic dysfunction Hearing loss Hx of valvular heart disease Hyperlipidemia Hypersomnolence On jail drug therapy Prostate cancer screening Pulmonary hypertension PVCs (premature ventricular contractions) RBBB (right bundle branch block) SOB (shortness of breath) Thrombocytopenia Tick bite Vision changes Vitamin D deficiency Surgical History Surgical History S/P cataract surgery Family History Family History Father Family history of heart disease in male family member before age 55 Malignant neoplasm of prostate Social History Social History Smoking packs per day: 2 Smoking cigarettes per day: 40.0 Years smoked: 18 Smoking pack-years: 36.00 Smoking status: Former smoker Tobacco type: cigarettes Second hand tobacco smoke exposure: Yes Smoking end date: 12/12/83 Additional smoking assessment comments: Discussed pack years. Alcohol intake: current Drinks per week: 6 Substance use: never Substance use type: does not use Lack of Transportation: No Lack of Food: Never True Current Housing: I Have Housing Concerned About Future Housing: Decline to Answer Difficulty Paying Gas/Electric Bills: Decline to Answer Difficulty Paying for Meds: Decline to Answer Currently Unemployed: Decline to Answer Education: Master's Degree or Higher Difficulty w/ Childcare or Family Care: No Living arrangements: with family Occupation/Education: retired Gender identity (if verbalized by the patient): Male Spiritual care concerns: No Same Day Admit/Disch: Med Pre-admit Medications Home Medications Medication Instructions Recorded Confirmed Type krill oil 500 mg capsule 500 mg PO DAILY 08/28/19 07/13/23 History cholecalciferol (vitamin D3) 25 25 mcg PO DAILY 04/23/22 07/13/23 History mcg (1,000 unit) capsule empagliflozin 10 mg tablet 10 mg PO DAILY 09/16/22 07/13/23 History spironolactone 25 mg tablet 25 mg PO DAILY 09/16/22 07/13/23 History chlorpheniramine 4 1 tablet PO .at hs 10/21/22 07/13/23 History mg-phenylephrine 10 mg-DM 10 mg tablet flecainide 100 mg tablet 100 mg PO Q12H 10/21/22 07/13/23 History triamcinolone acetonide 55 mcg 2 spray intranasal DAILY 10/21/22 07/13/23 History nasal spray aerosol (Nasacort) lansoprazole 30 mg capsule,delayed See Rx Instructions .Route 02/24/23 07/13/23 Rx release .COMPLEX #180 caps allopurinol 300 mg t
--- NOTE | 2023-07-13 17:37 | PC.NURSE ---
On 07/13/23, the LAPIDARIST,Lou Smith, provided care and completed [employer] documentation on this patient. I have reviewed the LAPIDARIST's documentation and agree with the findings.
== END 2023-07-13 17:35 | disposition home or self-care (01) ==
LOC: ANHED 05:46 → ANH3MEDSUR 06:26
PROVIDERS: Internal Medicine; Admitting Provider Family Medicine; Emergency Provider Emergency Medicine; PCP Internal Medicine; Visit Provider Family Medicine
DX: R20.0 Anesthesia of skin (principal); H53.9 Unspecified visual disturbance; R06.02 Shortness of breath; I11.9 Hypertensive heart disease without heart failure; K21.9 Gastro-esophageal reflux disease without esophagitis; R90.82 White matter disease, unspecified; M10.9 Gout, unspecified; R91.8 Other nonspecific abnormal finding of lung field; H91.90 Unspecified hearing loss, unspecified ear; E78.5 Hyperlipidemia, unspecified; G47.10 Hypersomnia, unspecified; I45.19 Other right bundle-branch block; R00.1 Bradycardia, unspecified; I45.10 Unspecified right bundle-branch block; D69.6 Thrombocytopenia, unspecified; E55.9 Vitamin D deficiency, unspecified; F10.90 Alcohol use, unspecified, uncomplicated; Z86.73 Personal history of transient ischemic attack (TIA), and cerebral infarction without residual deficits; Z87.891 Personal history of nicotine dependence; Z79.899 Other long term (current) drug therapy; Z86.69 Personal history of other diseases of the nervous system and sense organs
CPT/HCPCS: 36415; 70450; 70496; 70498; 70553; 71045; 80053; 81003; 82948; 83735; 84484; 85025; 85055; 85610; 85730; 93005; 99285; A9270; A9577; G0378; Q9967

== ENCOUNTER 2024-06-11 15:33 | Outpatient (CLI) | payer MEDICARE, SELFPAY ==
--- NOTE | ~2024-06-11 | CT_ITS ---
Clinical Indication: Hemoptysis CT Scan of the Chest with Contrast: Technique: Contiguous sections were acquired throughout the chest after intravenous administration of 75 cc of Omnipaque 350. Dose reduction technique was used on this scan by utilizing automated exposu re control and iterative reconstruction technique. The dose-length product (DLP) was 406.92 mGy-cm. Findings: Mildly prominent right hilar lymph nodes are noted. There is no filling defect in the pulmonary arter ial tree to suggest pulmonary embolus. There is no evidence of aortic dissection or aneurysm. There is no evidence of pleural or pericardial effusion. 5.6 x 3.4 cm area of masslike consolidation present at the inferior right upper lobe, abutting the fi ssure. Focal extension into the right lower lobe not excluded. There is extension consolidation towar ds the right hilum (axial image 69 for example). There is mild to moderate emphysema. Images through the upper abdomen reveal no abnormalities. 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 Impression: 5.6 x 3.4 cm masslike consolidation in the right upper lobe. Consolidative change extends centrally t owards the hilum. Findings are suspicious for neoplasm, though pneumonia is a potential alternative c onsideration. Tissue sampling should be strongly considered to establish histologic diagnosis, especi ally if there are no signs/symptoms of infection. Mildly prominent right hilar lymph nodes. These could reflect early addy metastatic disease versus r eactive nodes. Case discussed with Dr. Baron at the time of this exam. Reviewed, dictated and finalized at location . Impression: 5.6 x 3.4 cm masslike consolidation in the right upper lobe. Consolidative melchor ge extends centrally towards the hilum. Findings are suspicious for neoplasm, t tabatha pneumonia is a potential alternative consideration. Tissue sampling shoul d be strongly considered to establish histologic diagnosis, especially if there are no signs/symptoms of infection. Mildly prominent right hilar lymph nodes. These could reflect early addy metas tatic disease versus reactive nodes. Case discussed with Dr. Baron at the time of this exam.
[2024-06-11 15:59] LABS: Estimated Glomerular Filt Rate 59
== END 2024-06-11 15:34 | disposition home or self-care (01) ==
PROVIDERS: PCP Internal Medicine; Visit Provider Internal Medicine
DX: R04.2 Hemoptysis (principal); R91.8 Other nonspecific abnormal finding of lung field; R59.0 Localized enlarged lymph nodes
CPT/HCPCS: 71260; Q9967

== ENCOUNTER 2024-06-15 15:33 | Outpatient (NON) | payer MEDICARE, SELFPAY | END 2024-06-15 15:34 | disposition home or self-care (01) | LOC: ANHLAB 15:35 | PROVIDERS: PCP Internal Medicine; Visit Provider Internal Medicine | DX: R05.9 Cough, unspecified (principal) | CPT/HCPCS: 87070; 87077; 87186; 87205 ==

== ENCOUNTER 2024-06-18 06:58 | Outpatient (CLI) | payer MEDICARE, SELFPAY ==
--- NOTE | ~2024-06-18 | XR_ITS ---
Clinical Indication: Cough PA and lateral views of the chest: Comparison: 07/13/2023 Findings: Hazy right upper lobe consolidations compatible with pneumonia. Left lung clear.. Cardiome diastinal silhouette is within normal limits. Bones and soft tissues are unremarkable. Impression: Right upper lobe pneumonia. Reviewed, dictated and finalized at location . Impression: Right upper lobe pneumonia.
== END 2024-06-18 06:59 | disposition home or self-care (01) ==
PROVIDERS: PCP Internal Medicine; Visit Provider Internal Medicine
DX: J18.1 Lobar pneumonia, unspecified organism (principal)
CPT/HCPCS: 71047

== ENCOUNTER 2024-06-18 15:41 | Inpatient (IN) | payer MEDICARE, SELFPAY ==
[2024-06-18] VITALS (7 sets, daily range): BP systolic 101–132; BP diastolic 57–77; PULSE 58–67; RESP 14–20; TEMP 36.3–36.9; O2SAT 94–96; BMI 30.8
--- NOTE | 2024-06-18 18:07 | ED.SOB ---
HPI - SOB/Dyspnea General Chief Complaint: Shortness of Breath/Dyspnea <PERI Forrest Last Filed: 06/18/24 18:29> Stated Complaint: needs IV antibiotics for pneumonia <PERI Forrest Last Filed: 06/18/24 18:29> Time Seen by Provider: 06/18/24 18:07 <PERI Forrest Last Filed: 06/18/24 18:29> Focused HPI: Patient is a 78 y/o male who presents to the ED with c/o PNA. Patient has had outpatient chest imaging recently which showed a RUL PNA vs mass. He was initially started on Cefuroxime and doxycycline 3 days ago for suspected PNA. Sputum culture from 06/15 resulted positive for Pseudomonas, [place] sensitive. Patient is on Flecainide for AFIB and unable to have oral fluoroquinolones d/t risk of qtc prolongation. The only other sensitive antibiotics are parental. Patient was then sent here for admission/IV antibiotics. Reports mild persistent cough, mild SOB - worse with exertion. Denies CP. Denies fevers. GENERAL: Elderly, well-nourished, and in no acute distress. HEAD: Normocephalic, atraumatic. CHEST: Clear to auscultation. ?No respiratory distress. HEART: Regular rate and rhythm.? NEURO: ?Alert and oriented x3. Patient screened in triage and initial orders placed.? ?Additional care and disposition to be based upon?diagnostic testing and treatment. <PERI Forrest Last Filed: 06/18/24 18:29> Focused HPI: Patient is a 78 y/o male who presents to the ED with c/o PNA. Patient has had outpatient chest imaging recently which showed a RUL PNA vs mass. He was initially started on Cefuroxime and doxycycline 3 days ago for suspected PNA. Sputum culture from 06/15 resulted positive for Pseudomonas, [place] sensitive. Patient is on Flecainide for AFIB and unable to have oral fluoroquinolones d/t risk of qtc prolongation. The only other sensitive antibiotics are parenteral. Patient was then sent here for admission/IV antibiotics. Reports mild persistent cough, mild SOB - worse with exertion. Denies CP. Denies fevers. GENERAL: Elderly, well-nourished, and in no acute distress. HEAD: Normocephalic, atraumatic. CHEST: Clear to auscultation. ?No respiratory distress. HEART: Regular rate and rhythm.? NEURO: ?Alert and oriented x3. Patient screened in triage and initial orders placed.? ?Additional care and disposition to be based upon?diagnostic testing and treatment. <Dee Dee Nieto PA-C - Last Filed: 06/18/24 22:55> Source: patient <PERI Forrest Last Filed: 06/18/24 18:29> Mode of arrival: ambulatory <PERI Forrest Last Filed: 06/18/24 18:29> Limitations: no limitations <Dian Babb PA-C - Last Filed: 06/18/24 18:29> Related Data Home Medications: Home Medications Medication Instructions Recorded Confirmed krill oil 500 mg capsule 500 mg PO DAILY 08/28/19 06/18/24 cholecalciferol (vitamin D3) 25 25 mcg PO DAILY 04/23/22 06/18/24 mcg (1,000 unit) capsule empagliflozin 10 mg tablet 10 mg PO DAILY 09/16/22 06/18/24 spironolactone 25 mg tablet 25 mg PO DAILY 09/16/22 06/18/24 flecainide 100 mg tablet 100 mg PO Q12H 10/21/22 06/18/24 triamcinolone acetonide 55 mcg 2 spray intranasal DAILY PRN 10/21/22 06/18/24 nasal spray aerosol (Nasacort) allergies carvedilol 6.25 mg tablet 6.25 mg PO Q12H 06/30/23 06/18/24 sacubitril 49 mg-valsartan 51 mg 1 tablet PO BID 06/30/23 06/18/24 tablet (Entresto) Fiber 4 cap BYMOUTH DAILY 01/04/24 06/18/24 aspirin 81 mg tablet,delayed 81 mg PO DAILY 01/04/24 06/18/24 release (Adult Low Dose Aspirin) rosuvastatin 20 mg tablet 20 mg PO DAILY 01/04/24 06/18/24 allopurinol 300 mg tablet 300 mg PO DAILY 06/18/24 06/18/24 lansoprazole 30 mg capsule,delayed 30 mg PO BID 06/18/24 06/18/24 release triprolidine-pseudoephedrine 2.5 1 tablet PO DAILY PRN sinuses 06/18/24 06/18/24 mg-60 mg tablet <Dian Babb PA-C - Last Filed: 06/18/24 18:29> Allergies/Adverse Re
[2024-06-18 18:27] LABS: Basophils Percent Auto 0.7 % (0.2-1.2); Eosinophils Absolute Auto 0.3 K/mm3 (0-0.3); Eosinophils Percent Auto 4.9 % (0-4.4); Hematocrit 44.1 % (42.0-52.0); Hemoglobin 14.9 g/dL (14.0-18.0); Immature Granulocyte Absolute 0.03 K/mm3 (0.00-0.031); Immature Granulocyte Percent A 0.5 % (0-0.5); Lymphocytes Absolute Auto 1.38 K/mm3 (0.9-3.2); Lymphocytes Percent Auto 24.2 % (18.3-44.2); Mean Corpuscular HGB Conc 33.8 g/dl (32-36); Mean Corpuscular Volume 97.6 fl (80-100); Mean Platelet Volume 9.8 fl (7.4-10.4); Monocytes Absolute Auto 0.5 K/mm3 (0.1-0.6); Monocytes Percent Auto 7.9 % (2.6-8.5); Neutrophils Absolute Auto 3.5 K/mm3 (1.3-6.7); Neutrophils Percent Auto 61.8 % (45.5-73.1); Platelet Count Result 251 k/mm3 (150-375); Red Blood Count 4.52 M/mm3 (4.6-6.20); Red Cell Distribution Width 12.6 % (11.5-14.5); White Blood Count 5.7 K/mm3 (4.5-10.0)
[2024-06-18 18:38] LABS: INR 1.1; Prothrombin Time 14.4 Seconds (11.1-14.7)
[2024-06-18 18:41] LABS: Alanine Aminotransferase 22 U/L (6-50); Albumin Level 4.3 g/dL (3.5-5.1); Alkaline Phosphatase 112 U/L (38-126); Anion Gap 10 mmol/L (4-12); Aspartate Amino Transferase 26 U/L (17-59); Bilirubin,Total 0.5 mg/dL (0.2-1.3); Blood Urea Nitrogen 24 mg/dL (9-20); Calcium 9.1 mg/dL (8.4-10.2); Carbon Dioxide 27 mmol/L (22-30); Chloride 100 mmol/L (98-107); Estimated CRCL calculation 62 ml/min; Estimated Glomerular Filt Rate > 60; Glucose 153 mg/dL (65-110); Lactic Acid Reflex 1.6 mmol/L (0.7-2.0); Sodium 137 mmol/L (137-145)
[2024-06-18 18:49] LABS: NT Pro B Type Natriuretic Pept 91 pg/mL (19.9-100)
[2024-06-18] MEDS: CEFEPIME 2 GM/NS 50 ML 2 GM/50 ML BAG IVPB (21:23)
--- NOTE | 2024-06-18 22:11 | ECG_ITS ---
Test Date: 2024-06-18 22:42:27 Measurements Intervals [place] Rate: 62 P: -13 MT: 180 QRS: 241 QRSD: 194 T: 46 QT: 497 QTc: 508 Interpretive Statements SINUS RHYTHM RIGHT AXIS DEVIATION [QRS AXIS > 100] RIGHT BUNDLE BRANCH BLOCK [120+ ms QRS DURATION, UPRIGHT V1, 40+ ms S IN I/aVL/V4/V5/V6] ABNORMAL ELECTROCARDIOGRAM No previous ECG available for comparison Electronically Signed On 06-19-2024 07:31:41 CDT by Channing Tobar M.D.
--- NOTE | 2024-06-18 22:40 | PM.IMHP ---
H&P: HPI History of Present Illness Date/Time: 06/18/24 22:40 Chief Complaint: pneumonia Narrative: This is a 78-year-old male with past medical history significant for hypertension, cardiomyopathy, type 2 diabetes mellitus, GERD, diastolic heart failure. patient presents to the emergency room due to pneumonia this was found in the outpatient setting patient was sent to the emergency room. Patient denies any fevers, rigors, chills, cough, night sweats, nausea, vomiting, abdominal pain, diarrhea, has had good appetite and has been his usual state of health. This was an incidental finding on imaging. Preliminary workup was significant for chest x-ray with right upper lobe pneumonia Clinical Indication: Cough PA and lateral views of the chest: Comparison: 07/13/2023 Findings: Hazy right upper lobe consolidations compatible with pneumonia. Left lung clear.. Cardiomediastinal silhouette is within normal limits. Bones and soft tissues are unremarkable. Impression: Right upper lobe pneumonia. Review of Systems Review of Systems: pneumonia [facility] Past Medical History Medical History (Updated 06/18/24 @ 22:13 by Dee Dee Nieto PA-C) Abnormal finding of blood chemistry Arm paresthesia, right Benign essential hypertension BMI 30.0-30.9,adult BMI 31.0-31.9,adult Borderline abnormal TFTs Bradycardia Cardiomyopathy Cataract, right eye Changing skin lesion Colon cancer screening Cyst ADAMS (dyspnea on exertion) Dry cough Elevated glucose Encounter for Medicare annual wellness exam Encounter for routine adult health examination with abnormal findings Encounter for routine adult health examination without abnormal findings Facial paresthesia Follow up GERD (gastroesophageal reflux disease) Gout Grade II diastolic dysfunction Hearing loss Hx of valvular heart disease Hyperlipidemia Hypersomnolence On group home drug therapy Pneumonia Prostate cancer screening Pulmonary hypertension PVCs (premature ventricular contractions) RBBB (right bundle branch block) SOB (shortness of breath) Sore throat Thrombocytopenia Tick bite Vision changes Vitamin D deficiency Surgical History Surgical History S/P cataract surgery Family History Family History Father Family history of heart disease in male family member before age 55 Malignant neoplasm of prostate Social History Social History Smoking packs per day: 2 Smoking cigarettes per day: 40.0 Years smoked: 15 Smoking pack-years: 30.00 Smoking status: Former smoker Tobacco type: cigarettes Second hand tobacco smoke exposure: Yes Smoking end date: 12/12/83 Additional smoking assessment comments: Discussed pack years. Alcohol intake: current Drinks per week: 2 Substance use: never Substance use type: does not use Do You Feel Safe in your Home?: Yes Lack of Transportation: No Lack of Food: Never True Current Housing: I Have Housing Concerned About Future Housing: No Difficulty Paying Gas/Electric Bills: No Difficulty Paying for Meds: No Currently Unemployed: No Education: Master's Degree or Higher Difficulty w/ Childcare or Family Care: No Living arrangements: with family Occupation/Education: retired Gender identity (if verbalized by the patient): Male Spiritual care concerns: No Meds Home Medications and Allergies Home Medications Medication Instructions Recorded Confirmed Type krill oil 500 mg capsule 500 mg PO DAILY 08/28/19 06/18/24 History cholecalciferol (vitamin D3) 25 25 mcg PO DAILY 04/23/22 06/18/24 History mcg (1,000 unit) capsule empagliflozin 10 mg tablet 10 mg PO DAILY 09/16/22 06/18/24 History spironolactone 25 mg tablet 25 mg PO DAILY 09/16/22 06/18/24 History flecainide 100 mg tablet 100 mg PO Q12H 10/21
--- NOTE | 2024-06-18 23:52 | ADMGEN ---
This patient, Mohinder Orellana Jr., was admitted to Medical Room 348-01. Patient/family oriented to hospital policies and general routines including ID bracelet, bed and alarms, visiting hours, pain management, procedures, bathroom and other care routines, personal items, smoking policy, room service/diet, and visiting hours. Information on how to activate the Rapid Response Team has been discussed. Patient/Family are encouraged to report perceived risks to care and to ask questions if they do not understand what they are told or what they should do.
[2024-06-19] VITALS (11 sets, daily range): BP systolic 90–131; BP diastolic 53–87; PULSE 55–77; RESP 18–20; TEMP 36–37; O2SAT 96–99
[2024-06-19] MEDS: DOXYCYCLINE 100 MG/NS 100 ML 100 MG/100 ML BAG IVPB (04:52)
[2024-06-19] MEDS: CEFEPIME 2 GM/NS 50 ML 2 GM/50 ML BAG IVPB ×3 (05:55→21:04)
[2024-06-19] MEDS: EMPAGLIFLOZIN 10 MG TABLET PO (08:41)
[2024-06-19] MEDS: allopurinoL 300 MG TABLET PO (08:41)
[2024-06-19] MEDS: carvediloL 6.25 MG TABLET PO ×2 (08:41→21:06)
[2024-06-19] MEDS: PANTOPRAZOLE 40 MG TABLET PO ×2 (08:41→21:06)
[2024-06-19] MEDS: ROSUVASTATIN 20 MG TABLET PO (08:42)
[2024-06-19] MEDS: SACUBITRIL/VALSARTAN 49-51 MG TABLET 1 TABLET PO ×2 (08:42→21:06)
[2024-06-19] MEDS: SPIRONOLACTONE 25 MG TABLET PO (08:42)
[2024-06-19] MEDS: CELECOXIB 200 MG CAPSULE PO (09:55)
[2024-06-19 10:03] LABS: Glucose Point of Care 195 mg/dl (65-105)
--- NOTE | 2024-06-19 10:49 | PM.IMPN ---
Progress Note: A&P Assessment and Plan (1) Pneumonia: Qualifiers: Laterality: right Lung location: upper lobe of lung Pneumonia type: due to Pseudomonas Qualified Code(s): J15.1 - Pneumonia due to Pseudomonas Code(s): J18.9 - Pneumonia, unspecified organism Status: Acute Assessment and Plan: admit to regular medical floor with tele started on cefepime and doxycycline cultures in progress 06/19: Sputum culture Pseudomonas susceptible to fluoroquinolones, planned discharge on Levaquin starting 06/21 after flecainide out of system. Primary care very involved in patient care, came to hospital to see patient today and has solid discharge follow-up. (2) Cardiomyopathy: Qualifiers: Cardiomyopathy type: other Qualified Code(s): I42.8 - Other cardiomyopathies Code(s): I42.9 - Cardiomyopathy, unspecified Status: Acute Assessment and Plan: continue home meds (3) Grade II diastolic dysfunction: Code(s): I51.9 - Heart disease, unspecified Status: Acute Assessment and Plan: patient appears euvolemic daily intake and output (4) Pulmonary hypertension: Code(s): I27.20 - Pulmonary hypertension, unspecified Status: Acute Assessment and Plan: unchanged (5) Benign essential hypertension: Code(s): I10 - Essential (primary) hypertension Status: Acute Assessment and Plan: resume home meds continue to monitor (6) Hyperlipidemia: Qualifiers: Hyperlipidemia type: mixed hyperlipidemia Qualified Code(s): E78.2 - Mixed hyperlipidemia Code(s): E78.5 - Hyperlipidemia, unspecified Status: Acute Assessment and Plan: continue crestor (7) GERD (gastroesophageal reflux disease): Qualifiers: Esophagitis presence: without esophagitis Qualified Code(s): K21.9 - Gastro-esophageal reflux disease without esophagitis Code(s): K21.9 - Gastro-esophageal reflux disease without esophagitis Status: Acute Assessment and Plan: PPI Time Spent With Patient Time with patient: 25 - 35 minutes Subjective Date/time seen: 06/19/24 10:49 Interval history: Patient was admitted for IV antibiotics for Pseudomonas pneumonia. Patient had been treated for pneumonia by his primary care in the outpatient setting but sputum culture tested positive for Pseudomonas. Unable to utilize fluoroquinolones due to concurrent flecainide prescription and already prolonged QTC. Primary care attempted to direct admit patient but no tele beds were at time of admission yesterday so patient had to go through the emergency department to await bed availability. He was initiated on cefepime and continued on doxycycline. Patient's primary director veterinary Dr. Vazquez spoke to patient's primary care provider Dr. Baron and advised to stop flecainide, await 48 hours and then he can be treated with oral fluoroquinolones and be discharged. Last dose of flecainide was 2100 on 06/18 so our plan will be to remain admitted until the morning of 06 21 receiving cefepime until morning of discharge when he can be started on oral Levaquin. We will also obtain hemoglobin A1c as patient has borderline diabetes. Patient will remain on telemetry monitoring due to prolonged QRS duration and prolonged QTC just to monitor for severe dysrhythmia though it is not anticipated he will have significant problem. He was on the flecainide for PVCs so those may become more frequent. Review of Systems Review of Systems: All systems reviewed & are unremarkable except as noted in HPI and below Exam Narrative: GENERAL: Well-appearing, well-nourished, and in no acute distress. HEAD: Normocephalic, atraumatic. ENT:? Mucous membranes moist. CHEST: Minor wheeze right upper lobe with deep breath. No respiratory distress. Occasional cough. HEART: Regular rate and rhythm. ? Normal peripheral pulses. ABDOMEN: Soft, nontender, nond
[2024-06-19 11:54] LABS: Glucose Point of Care 170 mg/dl (65-105)
[2024-06-19 16:52] LABS: Glucose Point of Care 101 mg/dl (65-105)
[2024-06-19 21:05] LABS: Glucose Point of Care 149 mg/dl (65-105)
[2024-06-19] MEDS: ASPIRIN 81 MG ENTERIC TABLET PO (21:06)
[2024-06-19] MEDS: ALPRAZolam (*CRX) 0.5 MG TABLET PO (21:06)
[2024-06-19] MEDS: DOXYCYCLINE HYCLATE 100 MG TABLET PO (21:06)
[2024-06-20] VITALS (13 sets, daily range): BP systolic 94–110; BP diastolic 48–72; PULSE 56–84; RESP 19–20; TEMP 36.5–36.7; O2SAT 94–95
[2024-06-20] MEDS: CEFEPIME 2 GM/NS 50 ML 2 GM/50 ML BAG IVPB ×3 (05:46→21:10)
[2024-06-20 05:58] LABS: Basophils Percent Auto 0.8 % (0.2-1.2); Eosinophils Absolute Auto 0.2 K/mm3 (0-0.3); Eosinophils Percent Auto 4.1 % (0-4.4); Hematocrit 41.1 % (42.0-52.0); Hemoglobin 13.5 g/dL (14.0-18.0); Immature Granulocyte Absolute 0.02 K/mm3 (0.00-0.031); Immature Granulocyte Percent A 0.4 % (0-0.5); Lymphocytes Absolute Auto 1.74 K/mm3 (0.9-3.2); Lymphocytes Percent Auto 34.1 % (18.3-44.2); Mean Corpuscular HGB Conc 32.8 g/dl (32-36); Mean Corpuscular Hemoglobin 32.5 pg (26-34); Mean Corpuscular Volume 98.8 fl (80-100); Mean Platelet Volume 9.8 fl (7.4-10.4); Monocytes Absolute Auto 0.4 K/mm3 (0.1-0.6); Monocytes Percent Auto 8.4 % (2.6-8.5); Neutrophils Absolute Auto 2.7 K/mm3 (1.3-6.7); Neutrophils Percent Auto 52.2 % (45.5-73.1); Platelet Count Result 189 k/mm3 (150-375); Red Blood Count 4.16 M/mm3 (4.6-6.20); Red Cell Distribution Width 12.7 % (11.5-14.5); White Blood Count 5.1 K/mm3 (4.5-10.0)
[2024-06-20 06:07] LABS: Alanine Aminotransferase 22 U/L (6-50); Albumin Level 3.6 g/dL (3.5-5.1); Alkaline Phosphatase 92 U/L (38-126); Anion Gap 7 mmol/L (4-12); Aspartate Amino Transferase 24 U/L (17-59); Bilirubin,Total 0.7 mg/dL (0.2-1.3); Blood Urea Nitrogen 19 mg/dL (9-20); Calcium 9.1 mg/dL (8.4-10.2); Carbon Dioxide 25 mmol/L (22-30); Chloride 104 mmol/L (98-107); Estimated CRCL calculation 67 ml/min; Estimated Glomerular Filt Rate > 60; Glucose 89 mg/dL (65-110); Potassium 4.3 mmol/L (3.4-5.0); Sodium 136 mmol/L (137-145)
[2024-06-20 08:05] LABS: Glucose Point of Care 89 mg/dl (65-105)
[2024-06-20 08:14] LABS: Hemoglobin A1C 5.9 % (<5.7)
[2024-06-20] MEDS: allopurinoL 300 MG TABLET PO (08:52)
[2024-06-20] MEDS: DOXYCYCLINE HYCLATE 100 MG TABLET PO ×2 (08:52→21:09)
[2024-06-20] MEDS: PANTOPRAZOLE 40 MG TABLET PO ×2 (08:52→21:09)
[2024-06-20] MEDS: EMPAGLIFLOZIN 10 MG TABLET PO (08:52)
[2024-06-20] MEDS: SACUBITRIL/VALSARTAN 49-51 MG TABLET 1 TABLET PO ×2 (08:52→22:34)
[2024-06-20] MEDS: ALPRAZolam (*CRX) 0.5 MG TABLET PO ×2 (08:52→21:10)
[2024-06-20] MEDS: CELECOXIB 200 MG CAPSULE PO (08:52)
[2024-06-20] MEDS: SPIRONOLACTONE 25 MG TABLET PO (08:52)
[2024-06-20] MEDS: ROSUVASTATIN 20 MG TABLET PO (08:52)
[2024-06-20] MEDS: carvediloL 6.25 MG TABLET PO ×2 (08:53→21:09)
--- NOTE | 2024-06-20 16:22 | PM.IMPN ---
Progress Note: A&P Assessment and Plan (1) Pneumonia: Qualifiers: Laterality: right Lung location: upper lobe of lung Pneumonia type: due to Pseudomonas Qualified Code(s): J15.1 - Pneumonia due to Pseudomonas Code(s): J18.9 - Pneumonia, unspecified organism Status: Acute Assessment and Plan: admit to regular medical floor with tele started on cefepime and doxycycline cultures in progress 06/19: Sputum culture Pseudomonas susceptible to fluoroquinolones, planned discharge on Levaquin starting 06/21 after flecainide out of system. Primary care very involved in patient care, came to hospital to see patient today and has solid discharge follow-up. (2) Cardiomyopathy: Qualifiers: Cardiomyopathy type: other Qualified Code(s): I42.8 - Other cardiomyopathies Code(s): I42.9 - Cardiomyopathy, unspecified Status: Acute Assessment and Plan: continue home meds (3) Grade II diastolic dysfunction: Code(s): I51.9 - Heart disease, unspecified Status: Acute Assessment and Plan: patient appears euvolemic daily intake and output (4) Pulmonary hypertension: Code(s): I27.20 - Pulmonary hypertension, unspecified Status: Acute Assessment and Plan: unchanged (5) Benign essential hypertension: Code(s): I10 - Essential (primary) hypertension Status: Acute Assessment and Plan: resume home meds continue to monitor (6) Hyperlipidemia: Qualifiers: Hyperlipidemia type: mixed hyperlipidemia Qualified Code(s): E78.2 - Mixed hyperlipidemia Code(s): E78.5 - Hyperlipidemia, unspecified Status: Acute Assessment and Plan: continue crestor (7) GERD (gastroesophageal reflux disease): Qualifiers: Esophagitis presence: without esophagitis Qualified Code(s): K21.9 - Gastro-esophageal reflux disease without esophagitis Code(s): K21.9 - Gastro-esophageal reflux disease without esophagitis Status: Acute Assessment and Plan: PPI Plan Code status: Full code per patient DVT prophylaxis: Lovenox Stress ulcer prophylaxis: NA PT/OT notes: NA Disposition: Patient continues admission to medical unit for Pseudomonas pneumonia you have 1 more dose doxycycline and IV pain can transition to p.o. Levaquin in the a.m. post 48 hours discontinuing flecainide. To discharge home tomorrow. Time Spent With Patient Time with patient: 15 - 25 minutes Subjective Date/time seen: 06/20/24 16:22 Interval history: Patient is a 78-year-old male who was admitted to the medical unit for Pseudomonas pneumonia. 06/20/2024: Assumed Care Patient with no complaints or events overnight remains on room air denied any chest pain or shortness of breath. Plan discharge tomorrow morning. Review of Systems Review of Systems: All systems reviewed & are unremarkable except as noted in HPI and below Exam Narrative: Physical Exam: GENERAL: Alert and oriented x 3. No acute distress. EYES: PERRLA. HEENT: Moist mucous membranes. LUNGS: Diminished to auscultation bilaterally. No accessory muscle use. CARDIOVASCULAR: Regular rate and rhythm. No murmur. No JVD. S1-S2 ABDOMEN: Soft, non tenderness and non-distended. No palpable masses. EXTREMITIES: No edema. Non-tender SKIN: No rashes or lesions. Skin warm, dry. NEUROLOGIC: No focal neurological deficits. PSYCHIATRIC: Appropriate mood and affect. Good judgement and insight. Objective Data Vital Signs Vital Signs: Vital Signs - 24 hr 06/19/24 20:00 06/19/24 20:00 06/19/24 21:06 Temperature Pulse Rate 59 L 59 L Respiratory Rate Blood Pressure Pulse Oximetry Oxygen Delivery Room Air 06/19/24 21:23 06/20/24 00:00 06/20/24 04:00 Temperature 98.1 F Pulse Rate 58 L 56 L 70 Respiratory Rate 20 Blood Pressure 103/69 Pulse Oximetry 96 Oxyge
[2024-06-20] MEDS: ASPIRIN 81 MG ENTERIC TABLET PO (21:09)
[2024-06-21] VITALS: PULSE 66
[2024-06-21 04:00] VITALS: PULSE 59
[2024-06-21] MEDS: CEFEPIME 2 GM/NS 50 ML 2 GM/50 ML BAG IVPB (05:20)
[2024-06-21 05:54] LABS: Basophils Percent Auto 0.7 % (0.2-1.2); Eosinophils Absolute Auto 0.2 K/mm3 (0-0.3); Eosinophils Percent Auto 5.1 % (0-4.4); Hematocrit 41.5 % (42.0-52.0); Hemoglobin 13.9 g/dL (14.0-18.0); Immature Granulocyte Absolute 0.01 K/mm3 (0.00-0.031); Immature Granulocyte Percent A 0.2 % (0-0.5); Lymphocytes Absolute Auto 1.55 K/mm3 (0.9-3.2); Lymphocytes Percent Auto 34.1 % (18.3-44.2); Mean Corpuscular HGB Conc 33.5 g/dl (32-36); Mean Corpuscular Hemoglobin 32.8 pg (26-34); Mean Corpuscular Volume 97.9 fl (80-100); Mean Platelet Volume 9.8 fl (7.4-10.4); Monocytes Absolute Auto 0.4 K/mm3 (0.1-0.6); Monocytes Percent Auto 8.1 % (2.6-8.5); Neutrophils Absolute Auto 2.4 K/mm3 (1.3-6.7); Neutrophils Percent Auto 51.8 % (45.5-73.1); Platelet Count Result 180 k/mm3 (150-375); Red Blood Count 4.24 M/mm3 (4.6-6.20); Red Cell Distribution Width 12.8 % (11.5-14.5); White Blood Count 4.5 K/mm3 (4.5-10.0)
[2024-06-21 06:00] VITALS: BP 125/78; PULSE 55; RESP 18; TEMP 36.6; O2SAT 95
[2024-06-21 06:44] LABS: Alanine Aminotransferase 20 U/L (6-50); Albumin Level 3.6 g/dL (3.5-5.1); Alkaline Phosphatase 87 U/L (38-126); Anion Gap 7 mmol/L (4-12); Aspartate Amino Transferase 24 U/L (17-59); Bilirubin,Total 0.5 mg/dL (0.2-1.3); Blood Urea Nitrogen 23 mg/dL (9-20); Calcium 8.9 mg/dL (8.4-10.2); Carbon Dioxide 25 mmol/L (22-30); Chloride 105 mmol/L (98-107); Estimated CRCL calculation 61 ml/min; Estimated Glomerular Filt Rate > 60; Glucose 88 mg/dL (65-110); Potassium 4.2 mmol/L (3.4-5.0); Sodium 137 mmol/L (137-145)
[2024-06-21 08:00] VITALS: PULSE 76
[2024-06-21 08:23] LABS: Glucose Point of Care 178 mg/dl (65-105)
[2024-06-21] MEDS: SPIRONOLACTONE 25 MG TABLET PO (08:38)
[2024-06-21] MEDS: CELECOXIB 200 MG CAPSULE PO (08:38)
[2024-06-21] MEDS: PANTOPRAZOLE 40 MG TABLET PO (08:38)
[2024-06-21] MEDS: SACUBITRIL/VALSARTAN 49-51 MG TABLET 1 TABLET PO (08:38)
[2024-06-21] MEDS: FLUTICASONE PROPIONATE 0.05% NA SPR 16 GM BTL (*BKC) 2 SPRAY NASAL (08:38)
[2024-06-21] MEDS: ALPRAZolam (*CRX) 0.5 MG TABLET PO (08:38)
[2024-06-21] MEDS: EMPAGLIFLOZIN 10 MG TABLET PO (08:38)
[2024-06-21] MEDS: ROSUVASTATIN 20 MG TABLET PO (08:38)
[2024-06-21] MEDS: DOXYCYCLINE HYCLATE 100 MG TABLET PO (08:38)
[2024-06-21] MEDS: allopurinoL 300 MG TABLET PO (08:38)
[2024-06-21 08:39] VITALS: PULSE 55
[2024-06-21] MEDS: carvediloL 6.25 MG TABLET PO (08:39)
[2024-06-21] MEDS: levoFLOXacin 750 MG TABLET PO (11:17)
[2024-06-21 12:00] VITALS: PULSE 56
[2024-06-21 12:04] LABS: Glucose Point of Care 120 mg/dl (65-105)
--- NOTE | 2024-06-21 12:26 | PM.DS ---
DS: Admitting Diagnosis Discharge Date 06/21/2024 Admitting Diagnosis Pseudomonas pneumonia DS: Discharge Diagnosis Discharge Diagnosis (1) Pneumonia: Qualifiers: Laterality: right Lung location: upper lobe of lung Pneumonia type: due to Pseudomonas Qualified Code(s): J15.1 - Pneumonia due to Pseudomonas Code(s): J18.9 - Pneumonia, unspecified organism Status: Acute (2) Cardiomyopathy: Qualifiers: Cardiomyopathy type: other Qualified Code(s): I42.8 - Other cardiomyopathies Code(s): I42.9 - Cardiomyopathy, unspecified Status: Acute (3) Grade II diastolic dysfunction: Code(s): I51.9 - Heart disease, unspecified Status: Acute (4) Pulmonary hypertension: Code(s): I27.20 - Pulmonary hypertension, unspecified Status: Acute (5) Benign essential hypertension: Code(s): I10 - Essential (primary) hypertension Status: Acute (6) Hyperlipidemia: Qualifiers: Hyperlipidemia type: mixed hyperlipidemia Qualified Code(s): E78.2 - Mixed hyperlipidemia Code(s): E78.5 - Hyperlipidemia, unspecified Status: Acute Assessment and Plan: continue crestor (7) GERD (gastroesophageal reflux disease): Qualifiers: Esophagitis presence: without esophagitis Qualified Code(s): K21.9 - Gastro-esophageal reflux disease without esophagitis Code(s): K21.9 - Gastro-esophageal reflux disease without esophagitis Status: Acute Plan Disposition: Discharged to home DS: Summary Hospital Course Reason for hospitalization: Pseudomonas pneumonia Hospital Course: Patient was a 78-year-old male who was sent to the emergency department by his primary care physician he was initially being treated outpatient for pneumonia or possible neoplasm. He was found on a CT chest to have a pasty in the left upper lobe. Patient's primary care physician at sent out a culture and patient was found to have Pseudomonas pneumonia. Due to patient being on flecainide his primary care physician sent him to the emergency department to be initiated on IV antibiotic therapy for a 48 hour washout of flecainide prior to transitioning patient to oral Levaquin patient already has an elongated QTC and would need close cardiac monitoring. Patient remained room air during his inpatient stay denied any chest pain, shortness a breath, nausea, vomiting remained afebrile and normal WBC. Patient was then transitioned to p.o. Levaquin post 48 hours of stopping flecainide. Patient was then discharged home with 7 more days of p.o. Rowena has scheduled follow-up with primary care physician as well as director report on 06/27. Status at Discharge Functional status at discharge: independent ambulation Overall status at discharge: patient is back to baseline Time Spent with Patient Time attestation: Total time spent providing and/or coordinating discharge services: Time spent: Greater than 30 minutes Exam Narrative: Physical Exam: GENERAL: Alert and oriented x 3. No acute distress. EYES: PERRLA. HEENT: Moist mucous membranes. LUNGS: Diminished to auscultation bilaterally. No accessory muscle use. CARDIOVASCULAR: Regular rate and rhythm. No murmur. No JVD. S1-S2 ABDOMEN: Soft, non tenderness and non-distended. No palpable masses. EXTREMITIES: No edema. Non-tender SKIN: No rashes or lesions. Skin warm, dry. NEUROLOGIC: No focal neurological deficits. PSYCHIATRIC: Appropriate mood and affect. Good judgement and insight. DS: Data Data Completed and Pending Labs on day of discharge: Labs from last 24 hours 06/21/24 06/21/24 06/21/24 12:01 08:20 05:43 WBC 4.5 RBC 4.24 L Hgb 13.9 L Hct 41.5 L MCV 97.9 MCH 32.8 MCHC 33.5 RDW 12.8 Plt Count 180 MPV 9.8 Immature Gran % (Auto) 0.2 Neut % (Auto) 51.8 Lymph % (Auto) 34.1 [place] % (Auto) 8.1 Eos % (Auto) 5.1 H Baso %
== END 2024-06-21 13:30 | disposition home or self-care (01) | DRG 178 ==
LOC: ANHED 22:13 → ANH3MED 22:43
PROVIDERS: Nurse Practitioner; Physician Assistant; Admitting Provider Internal Medicine; Emergency Provider Physician Assistant; PCP Internal Medicine; Visit Provider Nurse Practitioner Family
DX: J15.1 Pneumonia due to Pseudomonas (principal); I43 Cardiomyopathy in diseases classified elsewhere; I11.9 Hypertensive heart disease without heart failure; E78.5 Hyperlipidemia, unspecified; E11.9 Type 2 diabetes mellitus without complications; E55.9 Vitamin D deficiency, unspecified; I27.20 Pulmonary hypertension, unspecified; I48.91 Unspecified atrial fibrillation; K21.9 Gastro-esophageal reflux disease without esophagitis; Z87.891 Personal history of nicotine dependence; Z79.82 Long term (current) use of aspirin; Z28.21 Immunization not carried out because of patient refusal
CPT/HCPCS: 36415; 71047; 80053; 82948; 83036; 83605; 83735; 83880; 85025; 85610; 85730; 93005; 96365; 96366; 96367; 99285; A9270; G0378; J0692

== ENCOUNTER 2024-08-13 15:49 | Outpatient (CLI) | payer MEDICARE, SELFPAY ==
--- NOTE | ~2024-08-13 | CT_ITS ---
CT Scan of the Chest without Contrast: Clinical Indication: Pneumonia Technique: Contiguous sections were acquired throughout the chest without intravenous contrast. Dose reduction technique was used on this scan by utilizing automated exposure control and iterative recon struction technique. The dose-length product (DLP) was 462.93 mGy-cm. COMPARISON: 06/11/2024 Findings: There is no evidence of any significant mediastinal, hilar or axillary lymphadenopathy. Extensive cor onary artery calcifications are present. There is no evidence of pleural or pericardial effusion. Previously noted right upper lobe pneumonia is largely resolved, with probable residual postinflammat ory scarring or minimal residual pneumonia present. Moderate emphysema present in the upper lobes in particular. Images through the upper abdomen reveal no abnormalities. 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 Impression: Presumed right upper lobe pneumonia is largely resolved, with probable residual postinflammatory scar ring or atelectasis, versus minimal residual pneumonia. Reviewed, dictated and finalized at [facility]. FILER Impression: Presumed right upper lobe pneumonia is largely resolved, with probable residual postinflammatory scarring or atelectasis, versus minimal residual pneumonia.
== END 2024-08-13 15:50 | disposition home or self-care (01) ==
PROVIDERS: PCP Internal Medicine; Visit Provider Internal Medicine Pulmonary Disease
DX: J18.9 Pneumonia, unspecified organism (principal)
CPT/HCPCS: 71250

== ENCOUNTER 2025-03-29 12:56 | Outpatient (CLI) | payer MEDICARE, SELFPAY ==
--- NOTE | ~2025-03-29 | CT_ITS ---
CT Scan of the Chest without Contrast: Clinical Indication: Nonspecific abnormal finding of lung field Technique: Contiguous sections were acquired throughout the chest without intravenous contrast. Dose reduction technique was used on this scan by utilizing automated exposure control and iterative recon struction technique. The dose-length product (DLP) was 518.01 mGy-cm. COMPARISON: 1224 Findings: There is no evidence of any significant mediastinal, hilar or axillary lymphadenopathy. Extensive cor onary artery calcifications are present. There is no evidence of pleural or pericardial effusion. Stable right upper lobe scarring. 4 mm anterior right upper lobe nodule is present (axial image 54). There is mild to moderate emphysema. Images through the upper abdomen reveal no abnormalities. 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 Impression: 4 mm anterior right upper lobe nodule. According to Fleischner Society for a low-risk patient, no fur ther follow-up required. For a high-risk patient, consider 12 month follow-up CT. Otherwise stable right upper lobe scarring with mild to moderate emphysema. Reviewed, dictated and finalized at location . Impression: 4 mm anterior right upper lobe nodule. According to Fleischner Society for a lo w-risk patient, no further follow-up required. For a high-risk patient, conside r 12 month follow-up CT. Otherwise stable right upper lobe scarring with mild to moderate emphysema.
--- OUTSIDE RECORDS SUMMARY | 2025-03-29 12:58 | XMS_ITS | Clinical Summary ---
Author Organization [facility] [place] [address] Address [address] [place] [address] Care Team Providers Care Emergency Response Technician Name Role Phone Brian Baron MD Primary Care Provider [phone] Allergies Active Allergy Reactions Criticality Noted Date Comments Clarithromycin Stomach upset Low 04/14/2021 Medications ALPRAZolam (XANAX) 0.5 mg tablet Take 1 tablet (0.5 mg total) by mouth daily 1 05/11/20 18 Active allopurinol (ZYLOPRIM) 300 mg tablet Take 1 tablet (300 mg total) by mouth daily 06/05/20 18 Active celecoxib (CeleBREX) 200 mg capsule Take 1 capsule (200 mg total) by mouth daily 05/21/20 18 Active lansoprazole (PREVACID) 30 mg capsule Take 1 capsule (30 mg total) by mouth 2 (two) times a day Active krill oil 500 mg capsule Take by mouth Activ e triamcinolone (NASACORT) 55 mcg nasal inhaler Administer 2 sprays into each nostril daily Active chlorphenirami ne-phenylephri ne 4-10 mg per tablet Take 1 tablet by mouth nightly Active rosuvastatin (CRESTOR) 20 mg tabletIndicati ons:TIA (transient ischemic attack) Take 1 tablet (20 mg total) by mouth daily (COURTESY REFILL, PATIENT NEEDS A FOLLOW UP FOR FURTHER REFILLS) 90 tablet 08/20/20 24 Active flecainide (TAMBOCOR) 100 mg tablet TAKE 1 TABLET BY MOUTH TWICE DAILY 180 tablet 1 09/13/19 25 Active Jardiance 10 mg tablet TAKE 1 TABLET BY MOUTH DAILY 90 tablet 03/04/20 25 Active carvediloL (COREG) 6.25 mg tablet TAKE 1 TABLET BY MOUTH TWICE DAILY WITH MEALS 180 tablet 3 03/04/20 25 Active spironolactone (ALDACTONE) 25 mg tablet TAKE 1 TABLET BY MOUTH DAILY 90 tablet 03/04/20 25 Active sacubitriL-anika sartan (Entresto) 49-51 mg tablet TAKE 1 TABLET BY MOUTH TWICE DAILY 180 tablet 03/04/20 25 Active aspirin 81 mg enteric coated tablet Take 1 tablet (81 mg total) by mouth daily 30 tablet 11 03/20/20 25 026 Active aspirin 81 mg enteric coated tablet Take 1 tablet (81 mg total) by mouth daily 30 tablet 11 02/15/20 24 025 Discontinued spironolactone (ALDACTONE) 25 mg tablet TAKE 1 TABLET BY MOUTH DAILY 90 tablet 1 09/13/19 25 025 Discontinued empagliflozin (Jardiance) 10 mg tablet TAKE 1 TABLET BY MOUTH DAILY 90 tablet 12/18/19 25 025 Discontinued sacubitriL-anika sartan (Entresto) 49-51 mg tablet TAKE 1 TABLET BY MOUTH TWICE DAILY 180 tablet 12/21/19 25 025 Discontinued carvediloL (COREG) 6.25 mg tablet TAKE 1 TABLET BY MOUTH TWICE DAILY WITH MEALS 180 tablet 01/08/20 25 025 Discontinued Active Problems Problem Noted Date Diagnosed Date Nonrheumatic mitral valve regurgitation 07/05/20 19 Paroxysmal atrial fibrillation 06/13/2018 Encounters Date Type Department Care Team Description 03/20/2025 11:45 AM CDT Office Visit [facility] [address] [place] [address] Thomas Vazquez MD History of cardiomyopathy (Primary Dx); Essential hypertension; Right bundle branch block with left anterior fascicular block; Lipid screening; Sleep disorder; WARD (obstructive sleep apnea) from Last 3 Months Social History Tobacco Use Types Packs/Day Years Used Date Smoking Tobacco: Former Smokeless Tobacco: Never Tobacco Cessation:Counseling Given: Not Answered Alcohol Use Standard Drinks/Week Comments Yes 0 (1 standard drink = 0.6 oz pur e alcohol) social drinker Sex and Gender Information Value Date Recorded Sex Assigned at Not on file 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 Gender Identity Not on file Sexual Orientation Not on file Obstetrics History Last Filed Vital Signs Vital Sign Reading Time Taken Comments Blood Pressure 136/82 03/20/2025 11:57 AM CDT Pulse 61 03/20/2025 11:57 AM CDT Temperature - - Respiratory Rate 16 09/01/2023 12:59 PM OVEN ATTENDANT Oxygen Saturation 96% 03/20/2025 11:57 AM CDT Inhaled Oxygen Concentration - - Weight 100.7 kg (222 lb) 03/20/2025 11:57 AM CDT Height 175.3 cm (5' 9) 03/20/2025 11:57 AM CDT Body Mass Index 32.78 03/20/2025 11:57 AM CDT Plan of Treatment Health Maintenance Due Date Last Done Comments Depression Screening 1945 Fall Risk Assessment 1945 Hepatitis C Screening 1945 DTaP/Tdap/Td Vaccine (1 - Tdap) 1956 Hepatitis B Screening 1963 Pneumococcal vaccine 65+ (1 of 1 - PCV) 1995 Zoster Vaccine (1 of 2) 1995 Abdominal Aortic Aneurysm (AAA) Screen 2010 Well Visit 65+ 2010 Covid-19 Vaccine ( season) 05/13/202402/2021, 12/22/2020 Influenza Vaccine (#1) 2025 05/30/2020 Procedures Procedure Name Priority Date/Time Associated Diagnosis Comments POCT LIPID PANEL Routine 03/20/2025 12:0 2 PM CDT Lipid screening from Last 3 Months Results * POCT lipid panel (03/20/2025 12:02 PM CDT) Cholesterol, POC 118 <200 MG/DL HDL, POC 56 >=40 mg/dL Triglycerides, POC 62 <=149 mg/dL LDL Cholesterol POC 50 <=129 mg/dL Chol/HDL Ratio, POC 0.9 NONE Non-HDL Cholesterol, POC 62 NONE mg/dL Cholesterol Total, POC 118 30 - 199 mg/dL Capillary blood 03/20/2025 1 2:02 PM CDT Thomas Vazquez MD POINT OF CARE TEST ORDERABLES Fi nal Result from Last 3 Months Insurance MEDICARE [facility] MEDICARE [facility] Care Teams Emergency Response Technician Relationship Specialty Start Date End Date Brian Baron MD [address] [facility] [address] [place] [id number] PCP - General Internal Medicine 05/29/18
--- OUTSIDE RECORDS SUMMARY | 2025-03-29 12:58 | XMS_ITS | Referral Summary ---
Author Organization [facility] [place] [address] [place] [address] [address] [place] [address] Care Team Providers Care Social Service Coordinator Name Role Phone Brian Baron MD Primary Care Provider [phone] Encounters Date Type Department Care Team Description 03/20/2025 11:45 AM CDT Office Visit [facility] Cardiology [address] [facility] [address] [place] [address] Thomas Vazquez MD History of cardiomyopathy (Primary Dx); Essential hypertension; Right bundle branch block with left anterior fascicular block; Lipid screening; Sleep disorder; WARD (obstructive sleep apnea) from Last 3 Months Allergies Active Allergy Reactions Criticality Noted Date [...] regurgitation 07/05/20 19 Paroxysmal atrial fibrillation 06/13/2018 Social History Tobacco Use Types Packs/Day Years Used Date Smoking Tobacco: Former Smokeless Tobacco: Never Tobacco Cessation:Counseling Given: Not Answered Alcohol Use Standard Drinks/Week Comments Yes 0 (1 standard drink = 0.6 oz pur e alcohol) social drinker Sex and Gender Information Value Date Recorded Sex Assigned at Not on file 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 Gender Identity Not on file Sexual Orientation Not on file Last Filed Vital Signs Vital Sign Reading Time Taken Comments Blood Pressure 136/82 03/20/2025 11:57 AM CDT Pulse 61 03/20/2025 11:57 AM CDT Temperature - - Respiratory Rate 16 09/01/2023 12:59 PM 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 Oxygen Saturation 96% 03/20/2025 11:57 AM CDT Inhaled Oxygen Concentration - - Weight 100.7 kg (222 lb) 03/20/2025 11:57 AM CDT Height 175.3 cm (5' 9) 03/20/2025 11:57 AM CDT Body Mass Index 32.78 03/20/2025 11:57 AM CDT Plan of Treatment Not on file Procedures Procedure Name Priority Date/Time Associated Diagnosis [...] Result from Last 3 Months Insurance MEDICARE [facility] MEDICARE [facility] Care Teams Social Service Coordinator Relationship Specialty Start Date End Date Brian Baron MD [address] [place] [address] PCP - General Internal Medicine 05/29/18
--- OUTSIDE RECORDS SUMMARY | 2025-03-29 12:58 | XMS_ITS | Patient Health Record ---
Author Organization [facility] Address [address] [place] [address] Care Team Providers Care Lunch Truck Driver Name Role Phone Kenny Alvarado Unavailable [phone] INSURANCE, INSURANCE Unavailable Unavailable Reason For Referral No Information Medications Medication SIG (Take, Route, Fr equency, Duration) Notes Start Date End Date Status allopurinol 300 mg 1 tab(s) orally once a day; Duration: 30 day(s) Active CeleBREX 400 mg 1 cap(s) orally once a day Active felodipine 10 mg 1 tab(s) orally once a day; Duration: 30 day(s) Active enalapril 20 mg 1 tab(s) orally once a day; Duration: 30 day(s) Active Social History Tobacco Use: Social History Observation Description Date Details (start date - stop date) Former Smoker NA - 10/04/1984 Smoking Question Answer Notes Are you a: former smoker When did you stop smoking? 10/04/1984 How long has it been since you last smoked? > 10 years Alcohol Question Answer Notes Did you have a drink contain ing alcohol in the past year? Yes How often did you have six o r more drinks on one occasion in the past year? Less than monthly (1 point) How many drinks did you have on a typical day when you were drinking in the past year? 1 or 2 (0 points) How often did you have a dri nk containing alcohol in the past year? 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) Active confirmed Problem Bilateral atherosclerosis of arteries of lower limbs (disorder) (48514346618873547 ) Atherosclerosis of artery of both lower extremities (I70.203) Active confirmed Plan Of Treatment Future Test Test Name Order Date VASCULAR ANALYSIS 10/04/2019 Insurance Providers Payer Name Payer Address Payer Phone Subscriber Number Group Number Insured Name Patient Relationship to Insured Coverage Start Date Coverage End Date Medicare Part B [address] [place] [phone] [id number] Mohinder Orellana Self - patient is the insured [facility] Supplement [address] [facility] [place] [place] [address] [id number] Mohinder Orellana Self - patient is the insured Medical (General) History Medical History History ICD Code Pacemaker/Defribillator NO diabetic Yes Heart disease No Heart murmur Yes Mitral valve prolapse No Hypertension No Peripheral vascular disease No Stroke No Raynauds syndrome No Menieres disease No Dialysis No Phlebitis No Venous insufficiency No Respiratory disease No Alzheimers disease No Parkinsons disease No Hepatitis No Fibromyalgia No RSD No Crohns Disease No Hiatal hernia No Colitis Yes Cirrhosis No thyroid problems No Liver Disease No Carpal tunnel No Neuropathy No Cancer No Pancreatitis No Multiple sclerosis No Hypercholestrolemia No Osteomyelitis Yes Sciatica No Arthritis Yes fractures No hip replacement No Knee Replacement No Surgical History Surgery Date(Month/Year) Hospitalization History Reason Date(Month/Year) A fib
--- OUTSIDE RECORDS SUMMARY | 2025-03-29 12:58 | XMS_ITS | Clinical Summary ---
Author Organization [facility] Address [facility] [place] [address] Care Team Providers Care Rubber Block Layer Name Role Phone Brian Baron MD Primary Care Provider [phone] Allergies No known active allergies Medications enalapril 20 MG tablet Take 20 mg by mouth 2 (two) times daily. Active felodipine ER 10 MG TABLET SR 24 HR 24 hr tablet Take 1 tablet by mouth 2 (two) times daily. Active celecoxib 200 MG capsule Take 200 mg by mouth daily. Active allopurinol 300 MG tablet Take 300 mg by mouth daily. Active lansoprazole 30 MG capsule Take 30 mg by mouth daily. Active ALPRAZolam 0.5 MG tablet Take 0.5 mg by mouth nightly as needed for Sleep. Active Active Problems No known active problems Immunizations Immunization Administration Dates Next Due PFIZER COVID-19 (ORIGINAL FO RMULATION, PURPLE CAP) mRNA, LNP-S, PF, 30 MCG/0.3 ML DOSE 01/15/2021,12/22/2020 Social History Tobacco Use Types Packs/Day Years Used Date Smoking Tobacco: Former Cigarettes Q uit: 12/23/1983 Smokeless Tobacco: Never Alcohol Use Standard Drinks/Week Comments Yes 0 (1 standard drink = 0.6 oz pur e alcohol) occaisional Sex and Gender Information Value Date Recorded Sex Assigned at Not on file Legal Sex Male 4:51 PM CDT Gender Identity Not on file Sexual Orientation Not on file Last Filed Vital Signs Vital Sign Reading Time Taken Comments Blood Pressure 120/63 03/23/2021 9:27 AM CDT Pulse 75 03/23/2021 9:27 AM CDT Temperature 36.3 C (97.3 F) 03/23/2021 7:08 AM CDT Respiratory Rate 16 03/23/2021 9:27 AM CDT Oxygen Saturation 98% 03/23/2021 9:27 AM CDT Inhaled Oxygen Concentration - - Weight 95.3 kg (210 lb) 03/12/2021 1:22 PM CDT Height 176.5 cm (5' 9.5) 03/12/2021 1:22 PM CDT Body Mass Index 30.57 03/12/2021 1:22 PM CDT Plan of Treatment Health Maintenance Due Date Last Done Comments Hepatitis C 1963 DTaP, Tdap and Td Vaccines ( 1 - Tdap) 1964 Pneumococcal Vaccine: 50+ Years (1 of 1 - PCV) 1995 Zoster Vaccines (1 of 2) 1995 Annual Medicare Wellness Visit 2010 RSV Immunization or 60+ Years (1 - 1-dose 75+ series) 2020 COVID-19 Vaccine (3 - 2023-2 5 season) 2024 01/15/2021, 12/22/2020 Meningococcal B Vaccine Aged Out No l onger eligible based on patient's age to complete this topic Meningococcal Vaccine Aged Out No jo ann dora eligible based on patient's age to complete this topic RSV Immunizations Under 20 Months Aged Out No longer eligible b ased on patient's age to complete this topic Medical Devices Implanted Type Area Motor Coach Chauffeur Device Identifier Shelf Expiration Date Model / Serial / Lot Intraocular Lens Implanted:Qty: 1 on 03/23/2021 by Vladimir Kramer MD at [facility] Lens Left: Eye 08/30/2023 [id number] / [id number] / Insurance MEDICARE [facility] Care Teams Rubber Block Layer Relationship Specialty Start Date End Date Brian Baron MD [address] [place] [address] PCP - General INTERNAL MEDICINE 03/23/21
== END 2025-03-29 12:57 | disposition home or self-care (01) ==
PROVIDERS: PCP Internal Medicine; Visit Provider Internal Medicine
DX: R91.1 Solitary pulmonary nodule (principal)
CPT/HCPCS: 71250

== ENCOUNTER 2025-06-26 13:06 | Outpatient (CLI) | payer MEDICARE, SELFPAY ==
--- OUTSIDE RECORDS SUMMARY | 2025-04-06 16:30 | XMS_ITS ---
Author Organization [facility] Address [address] [place] [address] Care Team Providers Care Egg Setter Name Role Phone Kenny Alvarado [phone] INSURANCE, INSURANCE Unavailable Unavailable Migration, Provider Unavailable Unavailable REASON FOR VISIT Multum To Medispan Conversion Encounter Medications Medication SIG (Take, Route, Fr equency, Duration) Notes Start Date End Date Status Allopurinol 300 MG 1 tab(s) orally once a day; Duration: 30 day(s) Active Felodipine ER 10 MG 1 tab(s) orally once a day; Duration: 30 day(s) Active CeleBREX 400 MG 1 cap(s) orally once a day Active Enalapril Maleate 20 MG 1 tab(s) orally once a day; Duration: 30 day(s) Active Encounters Encounter Location Date Provider Diagnosis [facility] [address] [address] 04/06/2025 Provider Migration Plan Of Treatment No Information Progress Notes * Mohinder ORELLANA TDOB:[birth year] (79 yo M)Acc No.[id number]:04/06/2025 UNLOCKED PROGRESS NOTE Patient: Mohinder MAGDALENO Provider: :1945 A ge:79 Y S ex:Male Date:04/06/2025 Address:[address] [place], [place] [id number] Subjective: * Chief Complaints: * 1 . Multum To Medispan Conversion Encounter. * Medical History: * Medications: T aking Enalapril Maleate 20 MG Tablet 1 tab(s) orally once a day , Taking Felodipine ER 10 MG Tablet Extended Release 24 Hour 1 tab(s) orally once a day , Taking CeleBREX 400 MG Capsule 1 cap(s) orally once a day , Taking Allopurinol 300 MG Tablet 1 tab(s) orally once a day Objective: * Vitals: Assessment: Plan: * Treatment: * Billing Information: * Visit Code: * Procedure Codes: * Electronic signature of Prov ider Migration on 06/26/2025 at 04:03 PM EDT Sign off status: Pending * Provider: Date: 04/06/2025 Generated for Guillaume kirk/Virgilio/Velvet on: 04:03 PM EDT
--- NOTE | ~2025-06-26 | XR_ITS ---
CORRECTED REPORT resend finalized report [facility] 09/26/2025 This report was recreated on 09/26/25. Original report was EXAMINATION: XR knee RT min 4V, 06/26/2025 13:10 CDT HISTORY: M25.561 - Pain in right knee NON INJ COMPARISON: No comparisons available. Findings: No acute fracture or malalignment. Moderate tricompartmental degenerative changes Soft tissues unremarkable. Impression: No acute fracture or malalignment. Reviewed, dictated and finalized at location P. Impression: No acute fracture or malalignment.
--- OUTSIDE RECORDS SUMMARY | 2025-06-26 15:04 | XMS_ITS | Clinical Summary ---
Author Organization [facility] Address [facility] [place] [address] Care Team Providers Care Cork Tile Floor Layer Name Role Phone Brian Baron MD Primary Care Provider Allergies No known active allergies Medications enalapril [...] 75+ series) 2020 COVID-19 Vaccine (3 - 2024-2 6 season) 2025 01/15/2021, 12/22/2020 Influenza Adult (#1) 2025 Meningococcal B Vaccine Aged Out No l onger eligible based on patient's age to complete this topic Meningococcal Vaccine Aged Out No jo ann dora eligible based on patient's age to complete this topic RSV Immunizations Under 20 Months Aged Out No longer eligible b ased on patient's age to complete this topic Medical Devices Implanted Type Area Resource Recovery Specialist Device Identifier Shelf Expiration Date Model / Serial / Lot Intraocular Lens Implanted:Qty: 1 on 03/23/2021 by Vladimir Kramer MD at [facility] Lens Left: Eye 08/30/2023 [id number] / [id number] / Insurance MEDICARE [employer] Care Teams Cork Tile Floor Layer Relationship Specialty Start Date End Date Brian Baron MD [address] - [facility] [address] [place] [address] PCP - General INTERNAL MEDICINE 03/23/21
--- OUTSIDE RECORDS SUMMARY | 2025-06-26 15:04 | XMS_ITS | Clinical Summary ---
Author Organization [facility] [address] Address [address] [place] [address] Care Team Providers Care Jeep Mechanic Name Role Phone Brian Baron MD Primary Care Provider [phone] Allergies Active Allergy Reactions Criticality Noted Date [...] FURTHER REFILLS) 90 tablet 08/20/20 24 Active carvediloL (COREG) 6.25 mg tablet TAKE 1 TABLET BY MOUTH TWICE DAILY WITH MEALS 180 tablet 3 03/04/20 25 Active aspirin 81 mg enteric coated tablet Take 1 tablet (81 mg total) by mouth daily 30 tablet 11 03/20/20 25 026 Active empagliflozin (Jardiance) 10 mg tablet TAKE 1 TABLET BY MOUTH DAILY 90 tablet 2 05/20/20 25 Active spironolactone (ALDACTONE) 25 mg tablet TAKE 1 TABLET BY MOUTH DAILY 90 tablet 2 05/20/20 25 Active flecainide (TAMBOCOR) 100 mg tablet TAKE 1 TABLET BY MOUTH TWICE DAILY 180 tablet 3 06/13/20 25 Active Entresto 49-51 mg tablet TAKE 1 TABLET BY MOUTH TWICE DAILY 180 tablet 3 06/13/20 25 Active flecainide (TAMBOCOR) 100 mg tablet TAKE 1 TABLET BY MOUTH TWICE DAILY 180 tablet 05/20/20 25 025 Discontinued sacubitriL-anika sartan (Entresto) 49-51 mg tablet TAKE 1 TABLET BY MOUTH TWICE DAILY 180 tablet 05/20/20 25 025 Discontinued Active Problems Problem Noted [...] on file Legal Sex Male 5:16 AM DIRECTOR 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 Gender Identity Not on file Sexual Orientation Not on file Obstetrics History Last Filed Vital Signs Vital Sign Reading Time Taken Comments Blood Pressure 136/82 03/20/2025 11:57 AM CDT Pulse 61 03/20/2025 11:57 AM CDT Temperature - - Respiratory Rate 16 09/01/2023 12:59 PM DIRECTOR OF CATERING Oxygen Saturation 96% 03/20/2025 11:57 AM CDT [...] 2010 Well Visit 65+ 2010 Covid-19 Vaccine (3 - season) 05/13/202502/2021, 12/22/2020 Influenza Vaccine (#1) 2025 05/30/2020 Insurance MEDICARE [facility] MEDICARE [employer] Care Teams Jeep Mechanic Relationship Specialty Start Date End Date Brian Baron MD PCP - General Internal Medicine 05/29/18
--- OUTSIDE RECORDS SUMMARY | 2025-06-26 15:04 | XMS_ITS | Patient Health Record ---
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 Problem Bilateral atherosclerosis of arteries of lower limbs (disorder) (17899260484155662 ) Atherosclerosis of artery of both lower extremities (I70.203) Active confirmed Encounters Encounter Location Date Provider Diagnosis [facility] [place] [address] 04/06/2025 Provider Migration Plan Of Treatment Future Test Test Name Order Date VASCULAR ANALYSIS 10/04/2019 Insurance Providers Payer Name Payer Address Payer Phone Subscriber Number Group Number Insured Name Patient Relationship to Insured Coverage Start Date Coverage End Date Medicare Part B [address] [place] [phone] [id number] Mohinder Orellana Self - patient is the insured [facility] Supplement [address] [facility] [place] [address] [id number] Mohinder Orellana Self - patient is the [...]
== END 2025-06-26 13:07 | disposition home or self-care (01) ==
PROVIDERS: PCP Internal Medicine; Visit Provider Internal Medicine
DX: M25.561 Pain in right knee (principal); M25.361 Other instability, right knee
CPT/HCPCS: 73564